=== PATIENT | female | born 1995 | race Caucasian/White ===

== ENCOUNTER 2019-08-25 18:34 | Emergency (ER) | payer OTHER, BC, SELFPAY ==
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
[2019-08-25 18:46] VITALS: BP 144/95; PULSE 76; RESP 18; TEMP 37.1; O2SAT 100
[2019-08-25 18:56] VITALS: O2SAT 99
[2019-08-25] MEDS: SODIUM CHLORIDE 0.9% IV 1,000 ML 999 ML IV CONT (19:28)
[2019-08-25] MEDS: ONDANSETRON INJ 4 MG/2 ML VIAL IV PUSH (19:28)
[2019-08-25 19:45] LABS: Estimated CRCL calculation 106 ml/min; Estimated Glomerular Filt Rate > 60
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
[2019-08-25 20:42] VITALS: BP 138/83; PULSE 73; RESP 16; O2SAT 100
== END 2019-08-25 20:42 | disposition home or self-care (01) ==
PROVIDERS: Emergency Provider Emergency Medicine
DX: S06.0X0A Concussion without loss of consciousness, initial encounter (principal); S80.12XD Contusion of left lower leg, subsequent encounter; S80.11XD Contusion of right lower leg, subsequent encounter; Q79.60 Ehlers-Danlos syndrome, unspecified; V49.40XA Driver injured in collision with unspecified motor vehicles in traffic accident, initial encounter; W18.2XXA Fall in (into) shower or empty bathtub, initial encounter; X58.XXXD Exposure to other specified factors, subsequent encounter
CPT/HCPCS: 36415; 70450; 74177; 81025; 96361; 96374; 99284; J2405; J7030; Q9967

== ENCOUNTER 2020-07-12 15:55 | Inpatient (IN) | payer BC, SELFPAY ==
[2020-07-12] VITALS (17 sets, daily range): BP systolic 97–119; BP diastolic 55–79; PULSE 63–113; RESP 16–24; TEMP 36.9–40.1; O2SAT 6–100; BMI 19.3
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
--- NOTE | ~2020-07-12 | XR_ITS ---
EXAMINATION: XR chest 1V portable EXAM DATE: 07/16/2020 03:44 INDICATION: Chest pain. TECHNIQUE: Portable AP frontal chest x-ray was obtained. Correlation is made to pulmonary CT earlier same date and abdomen pelvis CT 07/12/2020. FINDINGS: Compared to 4 days ago, development of moderate amount of bibasilar airspace disease, most likely pneumonia. CT demonstrated small to moderate-sized pleural effusions, which are subpulmonic on this x-ray and difficult to quantify. Upper lung zones are clear. Cardiomediastinal silhouette is no rmal. There is no pneumothorax suspected. There are no osseous abnormalities identified. IMPRESSION: 1. Multifocal moderate amount of bibasilar pneumonia. 2. Subpulmonic pleural effusions. Reviewed, dictated and finalized at location A. 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
--- NOTE | ~2020-07-12 | CT_ITS ---
EXAMINATION: CTA chest PE protocol DATE: 07/16/2020 05:35 INDICATION: Chest pain. Elevated d-dimer. TECHNIQUE: Computed tomography (CT) pulmonary angiogram of the chest was performed with 100 mL Omnipa que-350 intravenous contrast. Additional 3D reconstructions utilizing coronal maximum intensity proje ction (MIP) were performed. Automated exposure control and iterative reconstruction technique were em ployed. The dose-length product was 229.76 mGy-cm. COMPARISON: None FINDINGS: Excellent contrast opacification of the pulmonary arteries. There is mild streak artifact from dense contrast in the superior vena cava and right atrium. Mild scattered respiratory motion artifact which does not significantly limit evaluation. No pulmonary embolism. Small left and gnkqe-mc-zvxlboeh rig ht posteriorly layering pleural effusion. Groundglass opacities and some septal line thickening in th e dependent aspect of the bilateral upper and lower lobes with more dense patchy consolidation in the dependent lower lobes. Heart size is normal. No pericardial effusion. Thoracic aorta is normal in ca liber with no dissection. Couple mildly enlarged right hilar lymph nodes which are likely reactive. V isualized upper abdomen is normal. Mild thoracic spondylosis with chronic minimal anterior wedging at T10. IMPRESSION: 1. No pulmonary embolism. 2. Small left and ethzh-nq-sgxmxcde right pleural effusions. 3. Bilateral groundglass opacities and patchy consolidation in the dependent lungs which could repres ent pneumonia, aspiration, pulmonary edema or some combination thereof. 4. Mild likely reactive right hilar lymphadenopathy. Reviewed, dictated and finalized at location B. 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 No pulmonary embolism. 2. Small left and ksvwz-ol-seerewib right pleural effusions. 3. Bilateral groundglass opacities and patchy consolidation in the dependent sydnie ngs which could represent pneumonia, aspiration, pulmonary edema or some combin ation thereof. 4. Mild likely reactive right hilar lymphadenopathy.
--- NOTE | 2020-07-12 16:22 | PC.NURSE ---
PT UNABLE TO PROVIDE U/A AT THIS TIME. FLUIDS INFUSING - INSTRUCTED TO NOTIFY RN IF ABLE TO GO TO RESTROOM.
[2020-07-12 16:23] LABS: Hematocrit 36.1 % (37.0-47.0); Hemoglobin 12.2 g/dL (12.0-15.0); Mean Corpuscular HGB Conc 33.8 g/dl (32-36); Mean Corpuscular Hemoglobin 32.6 pg (26-34); Mean Corpuscular Volume 96.5 fl (80-100); Mean Platelet Volume 10.6 fl (7.4-10.4); Platelet Count Result 195 k/mm3 (150-375); Red Blood Count 3.74 M/mm3 (4.2-5.4); White Blood Count 18.9 K/mm3 (4.5-10.0)
[2020-07-12] MEDS: SODIUM CHLORIDE 0.9% IV 1,000 ML 999 ML IV CONT (16:29)
[2020-07-12] MEDS: ONDANSETRON INJ 4 MG/2 ML VIAL IV PUSH ×2 (16:29→21:20)
[2020-07-12] MEDS: FAMOTIDINE 20 MG/2 ML VIAL IV PUSH (16:29)
--- NOTE | 2020-07-12 16:34 | ED.ABDPAIN ---
HPI - Abdominal Pain General Chief Complaint: Abdominal Pain Stated Complaint: right flank pain, dysuria Time Seen by Provider: 07/12/20 16:00 Source: patient Mode of arrival: ambulatory Limitations: no limitations History of Present Illness HPI narrative: Patient is a 25-year-old female who presents with left flank pain noting sharp stabbing pain that began Monday with some burning with urination patient presents with fever chills sweats nausea. Patient denies vaginal bleeding discharge patient notes history of urinary tract infection with. . Patient is not taken anything for symptoms Related Data Allergies Allergy/AdvReac Type Severity Reaction Status Date / Time No Known Allergies Allergy Unknown Verified 07/12/20 16:20 Review of Systems Review of Systems: All systems reviewed & are unremarkable except as noted in HPI and below PMFSH Past Medical History Medical History Sanket-Danlos disease Family History Family History (Updated 08/01/11 @ 16:10 by DOCTOR UNKNOWN) Grandparent Diabetes mellitus Social History Social History Smoking status: Never smoker Second hand tobacco smoke exposure: No Alcohol intake: never Gender identity (if verbalized by the patient): Female Exam Narrative: Exam Narrative: GENERAL: Ill-appearing, well-nourished, and in no acute distress. HEAD: Normocephalic, atraumatic. EYES: PERRLA and EOMI. ENT: Nares clear, no rhinorrhea or epistaxis. Mucous membranes moist. CHEST: Clear to auscultation. No respiratory distress. No wheezes rales or rhonchi HEART: Regular rate and rhythm. No murmur heard. Normal peripheral pulses. ABDOMEN: Soft, left-sided abdominal tenderness, nondistended EXTREMITIES: Normal range of motion. No edema. SKIN: Warm, dry, no rash. NEURO: No focal deficits. Alert and oriented x3. Cranial nerves II through XII grossly intact PSYCH: Normal mood and affect. Course Course Emergency Course: Patient evaluated for fever flank pain found to have pyelonephritis was given fluids IV antibiotics with improvement will be kept in hospital overnight Vital Signs Vital signs: Vital Signs Temperature 104.1 F H 07/12/20 15:56 Pulse Rate 63 07/12/20 15:56 Respiratory Rate 17 07/12/20 15:56 Blood Pressure 109/79 07/12/20 15:56 Pulse Oximetry 95 07/12/20 15:56 Temperature 100 F H 07/12/20 17:00 Pulse Rate 80 07/12/20 18:45 Respiratory Rate 16 07/12/20 18:45 Blood Pressure 97/64 L 07/12/20 18:45 Pulse Oximetry 99 07/12/20 18:45 MDM - Abdominal Pain MDM Narrative Medical decision making narrative: Patient with pyelonephritis is unlikely etiology of her symptoms fluids antibiotics were given patient in the room in no distress aware of case findings treatment plan diagnosis will be kept in hospital for continued hydration and IV therapy Lab Data Result diagrams: 07/12/20 16:15 07/12/20 16:15 Labs: Lab Results 07/12/20 07/12/20 07/12/20 Range/Units 16:15 16:15 16:15 WBC 18.9 H (4.5-10.0) K/mm3 RBC 3.74 L (4.2-5.4) M/mm3 Hgb 12.2 (12.0-15.0) g/dL Hct 36.1 L (37.0-47.0) % MCV 96.5 (80-100) fl MCH 32.6 (26-34) pg MCHC 33.8 (32-36) g/dl RDW 12.0 (11.5-14.5) % Plt Count 195 (150-375) k/mm3 MPV 10.6 H (7.4-10.4) fl Immature Gran % (Auto) Not Reportable Neut % (Auto) Not Reportable Lymph % (Auto) Not Reportable [place] % (Auto) Not Reportable Eos % (Auto) Not Reportable Baso % (Auto) Not Reportable Lymph # (Auto) Not Reportable [place] # (Auto) Not Reportable Eos # (Auto) Not Reportable Baso # (Auto) Not Reportable Abs Immat Gran (auto) Not Reportable Absolute Neuts (auto) Not Reportable Absolute Nucleated RBC Not Reportable Total Counted 100 Neutrophils % (Manual) 77 H
[2020-07-12 16:40] LABS: Band Neutrophils Percent 6 % (0-6); Lymphocytes Absolute Manual 1.51 K/mm3 (1.1-4.5); Monocytes Percent Manual 9 % (3-9); Neutrophils Absolute Manual 15.68 K/mm3 (1.7-7.2); Neutrophils Percent Manual 77 % (46-73); Platelet Estimate Adequate (Adequate); Total Cells Counted 100
[2020-07-12 16:48] LABS: Alanine Aminotransferase 15 U/L (4-35); Albumin Level 4.1 g/dL (3.5-5.1); Alkaline Phosphatase 72 U/L (38-126); Anion Gap 12 mmol/L (8-16); Aspartate Amino Transferase 26 U/L (14-36); Bilirubin,Total 0.5 mg/dL (0.2-1.3); Blood Urea Nitrogen 10 mg/dL (7-17); Calcium 9.1 mg/dL (8.4-10.2); Carbon Dioxide 23 mmol/L (22-30); Chloride 97 mmol/L (98-107); Estimated CRCL calculation 74 ml/min; Estimated Glomerular Filt Rate > 60; Glucose 177 mg/dL (65-105); Lactic Acid Reflex 2.1 mmol/L (0.7-2.1); Lipase 46 U/L (23-300); Potassium 3.8 mmol/L (3.4-5.0); Sodium 132 mmol/L (137-145)
[2020-07-12 17:21] LABS: Add Urine Microscopic? YES; Appearance Urine Cloudy (Clear); Bacteria Urine 2+ /hpf; Bilirubin Urine Negative (Negative); Blood Urine 1+ (Negative); Color Urine Yellow (Yellow); Glucose Urine UA Negative (Negative); Ketones Urine 2+ mg/dL (Negative); Leukocyte Esterase Ur 2+ LEU/UL (Negative); Mucus Urine Rare /lpf; Nitrate Urine Positive (Negative); Protein Urine 3+ mg/dL (Negative); RBC Urine 21-50 /hpf (0-2); Squamous Epithelial Cell Urine Many /hpf (Few); Urobilinogen Urine Negative mg/dL (<2.0); WBC Urine >75 /hpf
[2020-07-12] MEDS: LACTATED RINGERS 1,000 ML 999 ML IV CONT (18:08)
[2020-07-12 19:20] LABS: Reflex Lactic Acid Yes or No Add Lactic
[2020-07-12 19:43] LABS: Lactic Acid 1.3 mmol/L (0.7-2.1)
[2020-07-12] MEDS: IBUPROFEN IV 800 MG/200 ML 800 MG/200 ML BAG 400 MG IVPB (21:20)
--- NOTE | 2020-07-12 21:40 | PM.IMHP ---
H&P: HPI History of Present Illness Date/Time: 07/12/20 20:30 Chief Complaint: Left flank pain and fever Narrative: Romana Pinzon is a 25 year old female with a past medical history of kidney stones and prior urinary tract infections who presented to the ER with left flank pain, subjective fevers and chills for 2 days. The patient had not been feeling well for the last 7 days. She has been more fatigued. Two days ago she developed fevers, dysuria and left flank pain. Her symptoms were similar to when she had a prior kidney stone and associated UTI. Her fever when she arrived to the ER was 104.1. She was having rigors and chills at home. She denies any headache, cough, recent ill contacts, COVID exposures, or abdominal pain. She did have some intermittent nausea associated with her flank pain. She did have a few episodes of clear emesis. She denies any diarrhea or changes in bowel habits. She reports her pain was a 10/10 in severity at its worst it is currently down to a 7/10 in intensity. The pain was pressure-like in nature and constant. She did try some Tylenol home with only minimal relief in her pain. The Tylenol did seem to help her chills. She denies having any hematuria. Her last urinary tract infection was at least 7 years ago. When the patient arrived to the ER her blood pressures were normal. Her blood pressures did drop while in the ER and I went down to the ER to evaluate her at that time. Repeat blood pressures had normalized. Patient was having rigors so vigorous that the bed was rattling when I entered the room. Review of Systems Review of Systems: Narrative: 12 systems were reviewed with pertinent positives and negatives per HPI. Except as documented in the HPI, all other systems were reviewed and are negative. [facility] Past Medical History Medical History (Updated 07/12/20 @ 21:44 by Madhavi Davis DO) Sanket-Danlos disease Kidney stones Surgical History Surgical History (Updated 07/12/20 @ 21:44 by Madhavi Davis DO) S/P laparoscopic procedure Endometriosis 2017 Uterine polyp Status post polypectomy 2017 Family History Family History (Updated 07/12/20 @ 22:40 by Madhavi Davis DO) Grandparent Diabetes mellitus Mother Healthy female adult Father Healthy adult male Social History Social History (Updated 07/12/20 @ 22:41 by Madhavi Davis DO) Smoking status: Never smoker Second hand tobacco smoke exposure: No Alcohol intake: current Drinks per week: 12 Alcohol use details: She drinks 2 or 3 times a week. She will drink 3-5 drinks on these occasions. Substance use type: marijuana Other substance usage details: She smokes marijuana daily. Additional living arrangements comments: She lives with her boyfriend. Gender identity (if verbalized by the patient): Female Spiritual care concerns: No Meds Home Medications and Allergies Home Medications Medication Instructions Recorded Confirmed Type naproxen 500 mg PO BID PRN #20 tablet 08/25/19 Rx ondansetron HCl [Zofran] 4 mg PO Q6H PRN #14 tablet 08/25/19 Rx Allergies Allergy/AdvReac Type Severity Reaction Status Date / Time No Known Allergies Allergy Unknown Verified 07/12/20 16:20 Vital Signs Vital Signs - 24 hr 07/12/20 15:56 07/12/20 16:30 07/12/20 17:00 Temperature 104.1 F H 100 F H Pulse Rate 63 112 H Respiratory Rate 17 18 Blood Pressure 109/79 119/78 Pulse Oximetry 95 97 07/12/20 18:00 07/12/20 18:45 07/12/20 19:00 Temperature Pulse Rate 90 80 82 Respiratory Rate 16 16 22 H Blood Pressure 104/69 97/64 L Pulse Oximetry 100 99 100 07/12/20 19:01 07/12/20 19:15 07/12/20 19:16 Temperature Pulse Rate 83 83 82 Respiratory Rate 20 16 19 Blood Pressure 108/70 106/67 Pulse Oximetry 100 100 100 07/12/20 19:32 07/12/20 19:45 07/12/20 20:00 Temperature Pulse Rate 89 85 85 Respiratory Rate 18 24 H 20 Blood Pressure Pulse Oximetry 100
[2020-07-12] MEDS: LACTATED RINGERS 1,000 ML 125 ML IV CONT (22:26)
[2020-07-13] VITALS (11 sets, daily range): BP systolic 100–120; BP diastolic 53–70; PULSE 78–103; RESP 16–18; TEMP 36.2–38; O2SAT 95–100; BMI 19.3
--- NOTE | 2020-07-13 03:10 | ADMGEN ---
This patient, Romana Pinzon, was admitted to 3 [facility] Surg Room 320-01. Patient/family oriented to hospital policies and general routines including ID bracelet, bed and alarms, visiting hours, pain management, procedures, bathroom and other care routines, personal items, smoking policy, room service/diet, and visiting hours. Information on how to activate the Rapid Response Team has been discussed. Patient/Family are encouraged to report perceived risks to care and to ask questions if they do not understand what they are told or what they should do. Patient arrived on the unit at 2150. She said she had some R flank pain and her temperature was 103. callisthenics instructor PA notified of the result and ice bags were placed behind her neck and under her arms. Her medications and health history were reviewed. She denied use of any prescription meds.
[2020-07-13] MEDS: MORPHINE SULFATE (*CRX) 2 MG/ML INJ IV PUSH ×2 (04:34→21:54)
[2020-07-13] MEDS: LACTATED RINGERS 1,000 ML 125 ML IV CONT ×2 (06:15→14:33)
[2020-07-13 06:17] LABS: Hematocrit 32.2 % (37.0-47.0); Hemoglobin 10.7 g/dL (12.0-15.0); Immature Platelet Fraction Pct 6.5 % (0.9-11.2); Mean Corpuscular HGB Conc 33.2 g/dl (32-36); Mean Corpuscular Hemoglobin 32.5 pg (26-34); Mean Corpuscular Volume 97.9 fl (80-100); Mean Platelet Volume 10.8 fl (7.4-10.4); Platelet Count Result 150 k/mm3 (150-375); Red Blood Count 3.29 M/mm3 (4.2-5.4); Red Cell Distribution Width 12.2 % (11.5-14.5); White Blood Count 14.9 K/mm3 (4.5-10.0)
[2020-07-13 06:26] LABS: Anion Gap 6 mmol/L (8-16); Blood Urea Nitrogen 9 mg/dL (7-17); Calcium 8.4 mg/dL (8.4-10.2); Carbon Dioxide 25 mmol/L (22-30); Chloride 101 mmol/L (98-107); Estimated CRCL calculation 83 ml/min; Estimated Glomerular Filt Rate > 60; Glucose 121 mg/dL (65-105); Sodium 132 mmol/L (137-145)
[2020-07-13 06:45] LABS: Band Neutrophils Percent 9 % (0-6); Basophils Absolute Manual 0.14 K/mm3 (0.0-0.1); Basophils Percent Manual 1 % (0-1); Lymphocytes Absolute Manual 0.29 K/mm3 (1.1-4.5); Monocytes Absolute Manual 0.59 K/mm3 (0.1-0.90); Monocytes Percent Manual 4 % (3-9); Neutrophils Absolute Manual 13.85 K/mm3 (1.7-7.2); Neutrophils Percent Manual 84 % (46-73); Platelet Estimate Adequate (Adequate); Total Cells Counted 100
[2020-07-13] MEDS: FAMOTIDINE 20 MG/2 ML VIAL IV PUSH ×2 (09:19→20:07)
--- NOTE | 2020-07-13 15:26 | PM.IMPN ---
Progress Note: A&P Assessment and Plan (1) Pyelonephritis: Code(s): N12 - Tubulo-interstitial nephritis, not specified as acute or chronic Status: Acute Assessment and Plan: 07/13/20 15:26 Patient is a 25-year-old female with a history of nephrolithiasis and recurrent UTI presented emergency department with a complaint of left-sided flank and abdominal pain fever nausea dysuria and frequency for 7 days and was getting progressively worse patient presented emergency depat her urine is positive for nitrite, leuko Estrace, leuko urea and CT scan of abdomen suggestive of pyelonephritis and upon arrival patient had a fever of 104, patient also met criteria for sepsis with leukocytosis, fever, source of infection, high normal lactic acid patient is started on Rocephin and will follow-up on urine culture and sensitivity and further recommendation to follow, today patient states feeling much better, does complaint of pain in left flank as well as cough and headache. (2) Sepsis: Qualifiers: Sepsis type: sepsis due to unspecified organism Sepsis acute organ dysfunction status: without acute organ dysfunction Qualified Code(s): A41.9 - Sepsis, unspecified organism Code(s): A41.9 - Sepsis, unspecified organism Status: Acute Assessment and Plan: Plan is above Additional Plan Sepsis due to left-sided pyelonephritis. Patient has been placed on empiric antibiotic therapy with Rocephin. She received 30 mL per kill bolus of isotonic fluids. Her blood pressures have improved with fluid resuscitation. Will continue Tylenol as needed for fever and moderate pain. Will add morphine as needed for severe pain. Zofran as needed for nausea. Urine cultures and blood cultures are pending. Will repeat CBC and BMP in a.m.. Subjective Date/time seen: 07/13/20 15:26 Patient is a 25-year-old female with a history of nephrolithiasis and recurrent UTI presented emergency department with a complaint of left-sided flank and abdominal pain fever nausea dysuria and frequency for 7 days and was getting progressively worse patient presented emergency depat her urine is positive for nitrite, leuko Estrace, leuko urea and CT scan of abdomen suggestive of pyelonephritis and upon arrival patient had a fever of 104, patient also met criteria for sepsis with leukocytosis, fever, source of infection, high normal lactic acid patient is started on Rocephin and will follow-up on urine culture and sensitivity and further recommendation to follow, today patient states feeling much better, does complaint of pain in left flank as well as cough and headache. Review of Systems Review of Systems: All systems reviewed & are unremarkable except as noted in HPI and below Exam Narrative: Exam Narrative: Nurse Susan is present in the room Patient is comfortable, NAD HEENT: eyes are clear and none icteric LUNGS:CTA HEART: RR S1S2 ABD: left CVA tenderness Lower extremities: no edema SKIN: nonjaundiced Neuro: grossly intact. Objective Data Vital Signs Vital Signs: Vital Signs - 24 hr 07/12/20 15:56 07/12/20 16:30 07/12/20 17:00 Temperature 104.1 F H 100 F H Pulse Rate 63 112 H Respiratory Rate 17 18 Blood Pressure 109/79 119/78 Pulse Oximetry 95 97 07/12/20 18:00 07/12/20 18:45 07/12/20 19:00 Temperature Pulse Rate 90 80 82 Respiratory Rate 16 16 22 H Blood Pressure 104/69 97/64 L Pulse Oximetry 100 99 100 07/12/20 19:01 07/12/20 19:15 07/12/20 19:16 Temperature Pulse Rate 83 83 82 Respiratory Rate 20 16 19 Blood Pressure 108/70 106/67 Pulse Oximetry 100 100 100 07/12/20 19:32 07/12/20 19:45 07/12/20 20:00 Temperature Pulse Rate 89 85 85 Respiratory Rate 18 24 H 20 Blood Pressure Pulse Oximetry 100 96 100 07/12/20 20:29 07/12/20 21:55 07/12/20 22:00 Temperature 103.1 F H 103.4 F H Pulse Rate 113 H Respiratory Rate 16 Blood Pressure 101/78 104/55 L Pulse Oximetry 98
[2020-07-13] MEDS: IBUPROFEN 600 MG TABLET PO (16:33)
[2020-07-13] MEDS: ONDANSETRON INJ 4 MG/2 ML VIAL IV PUSH (16:36)
[2020-07-13] MEDS: metroNIDAZOLE 500 MG/ISO 100ML 500 MG/100 ML BAG 100 MG IVPB (18:24)
[2020-07-14] VITALS: BP 110/69; PULSE 83; RESP 16; TEMP 37; O2SAT 99
[2020-07-14] MEDS: LACTATED RINGERS 1,000 ML 125 ML IV CONT ×3 (00:42→17:56)
[2020-07-14] MEDS: IBUPROFEN 600 MG TABLET PO ×2 (01:01→20:33)
[2020-07-14] MEDS: metroNIDAZOLE 500 MG/ISO 100ML 500 MG/100 ML BAG 100 MG IVPB ×4 (03:09→20:26)
[2020-07-14 04:00] VITALS: BP 99/52; PULSE 78; RESP 16; TEMP 36.2; O2SAT 99
[2020-07-14 06:08] LABS: Hematocrit 29.8 % (37.0-47.0); Hemoglobin 9.8 g/dL (12.0-15.0); Mean Corpuscular HGB Conc 32.9 g/dl (32-36); Mean Corpuscular Hemoglobin 32.3 pg (26-34); Mean Corpuscular Volume 98.3 fl (80-100); Platelet Count Result 146 k/mm3 (150-375); Red Blood Count 3.03 M/mm3 (4.2-5.4); Red Cell Distribution Width 12.5 % (11.5-14.5); White Blood Count 11.4 K/mm3 (4.5-10.0)
[2020-07-14 06:23] LABS: Anion Gap 2 mmol/L (8-16); Blood Urea Nitrogen 9 mg/dL (7-17); Calcium 8.2 mg/dL (8.4-10.2); Carbon Dioxide 30 mmol/L (22-30); Chloride 102 mmol/L (98-107); Estimated CRCL calculation 83 ml/min; Estimated Glomerular Filt Rate > 60; Glucose 92 mg/dL (65-105); Potassium 3.7 mmol/L (3.4-5.0); Sodium 134 mmol/L (137-145)
[2020-07-14 07:01] LABS: Band Neutrophils Percent 9 % (0-6); Lymphocytes Absolute Manual 0.11 K/mm3 (1.1-4.5); Monocytes Absolute Manual 0.91 K/mm3 (0.1-0.90); Monocytes Percent Manual 8 % (3-9); Neutrophils Absolute Manual 10.37 K/mm3 (1.7-7.2); Neutrophils Percent Manual 82 % (46-73); Total Cells Counted 100
[2020-07-14] MEDS: FAMOTIDINE 20 MG/2 ML VIAL IV PUSH ×2 (08:11→20:20)
--- NOTE | 2020-07-14 12:44 | PM.IMHP ---
H&P: HPI History of Present Illness Date/Time: 07/14/20 12:44 Chief Complaint: [facility] [employer] consultation Narrative: 25 y/o nulligravida with fever, flank pain, here with a diagnosis of pyelonephritis. Temp of 104 on admission, WBC 19K. Both have improved. She has pain which is under good control on analgesics. Receiving Rocephin. Urine clean catch and blood culture both positive for E coli. Last menstrual period 06/13/20. They are irregular, occurring every 1-2 months, not painful, with 4-5 days of bleeding typically. Sexually active with one partner for the last 4 months, using coitus interruptus for contraception. No vaginal discharge. Both she and her boyfriend had COVID-19, have recovered. She has a history of kidney stones in the past. No history of STI. Review of Systems Review of Systems: All systems reviewed & are unremarkable except as noted in HPI and below PMFSH Past Medical History Medical History Sanket-Danlos disease Kidney stones Surgical History Surgical History S/P laparoscopic procedure Endometriosis 2017 Uterine polyp Status post polypectomy 2017 Family History Family History Grandparent Diabetes mellitus Mother Healthy female adult Father Healthy adult male Social History Social History Smoking status: Never smoker Second hand tobacco smoke exposure: No Alcohol intake: current Drinks per week: 12 Alcohol use details: She drinks 2 or 3 times a week. She will drink 3-5 drinks on these occasions. Substance use type: marijuana Other substance usage details: She smokes marijuana daily. Additional living arrangements comments: She lives with her boyfriend. Gender identity (if verbalized by the patient): Female Spiritual care concerns: No Meds Home Medications and Allergies Home Medications Medication Instructions Recorded Confirmed Type naproxen 500 mg PO BID PRN #20 tablet 08/25/19 07/13/20 Rx ondansetron HCl [Zofran] 4 mg PO Q6H PRN #14 tablet 08/25/19 07/13/20 Rx Allergies Allergy/AdvReac Type Severity Reaction Status Date / Time No Known Allergies Allergy Unknown Verified 07/12/20 16:20 Vital Signs Vital Signs - 24 hr 07/13/20 14:11 07/13/20 16:00 07/13/20 16:33 Temperature 37.2 C 38.0 C H 38.0 C H Pulse Rate 95 Respiratory Rate 16 Blood Pressure 110/58 L Pulse Oximetry 100 07/13/20 18:24 07/13/20 20:00 07/14/20 00:00 Temperature 36.9 C 36.2 C L 37.0 C Pulse Rate 80 83 Respiratory Rate 18 16 Blood Pressure 101/53 L 110/69 Pulse Oximetry 97 99 07/14/20 04:00 Temperature 36.2 C L Pulse Rate 78 Respiratory Rate 16 Blood Pressure 99/52 L Pulse Oximetry 99 Exam Const: Orientation/consciousness: patient oriented x3 Other: Well-developed, well-nourished female in no acute distress. Neck: Thyroid: thyroid normal Lymphatic: no lymphadenopathy noted (in neck, axilla or inguinal nodes) Resp: Effort & Inspection: normal respiratory effort Auscultation: clear to auscultation bilaterally Cardio: Rate: regular rate Rhythm: regular rhythm Heart sounds: S1 normal heart sound present and S2 normal heart sound present GI: Other: ABD: Soft, nontender, nondistended. No guarding or rebound tenderness. No hepatosplenomegaly. : Other: External genitalia: normal female hair distribution, without lesion. Urethral meatus: no lesion, non prolapsed. Bladder: no mass, nontender Vagina: three tampons retained. These were removed with a ring forceps. Cervix: no cervical motion tenderness. A probe for GC/CT was collected. Uterus: small, anteverted, freely mobile, nontender Adnexa: no mass or tenderness. Anus/perineum: no lesions, nontender Skin: General skin exam: normal color and no rashes or lesions noted Ne
[2020-07-14 14:00] VITALS: BP 108/64; PULSE 76; RESP 16; TEMP 36.4; O2SAT 97
--- NOTE | 2020-07-14 15:09 | PM.IMPN ---
Progress Note: A&P Assessment and Plan (1) Pyelonephritis: Code(s): N12 - Tubulo-interstitial nephritis, not specified as acute or chronic Status: Acute Assessment and Plan: 07/14/20 15:09 Patient is a 25-year-old female with a history of nephrolithiasis and recurrent UTI presented emergency department with a complaint of left-sided flank and abdominal pain fever nausea dysuria and frequency for 7 days and was getting progressively worse patient presented emergency depat her urine is positive for nitrite, leuko Estrace, leuko urea and CT scan of abdomen suggestive of pyelonephritis and upon arrival patient had a fever of 104, patient also met criteria for sepsis with leukocytosis, fever, source of infection, high normal lactic acid patient is started on Rocephin and will follow-up on urine culture and sensitivity and further recommendation to follow, today patient states feeling much better, does complaint of pain in left flank as well as cough and headache. 07/14 today patient still complains of abdominal, states the headache and nausea are better, denies any fever or chills admitted with pyelonephritis was treated with Rocephin, yesterday patient had a persistent fever abdominal pain and concern vaginal discharge possibly PID switch antibiotics to Zosyn and Flagyl consulted gynecologis and was seen today and had a pelvic exam, during pelvic exam 3 old tampons were removed from her last period in May, suggesting patient may have toxic shock syndrome, machine stapler collected culture for GC/chylmida, urine culture and on bottle of blood culture is growing E coli, will follow-up sensitivity and further recommendation to follow. (2) Sepsis: Qualifiers: Sepsis type: sepsis due to unspecified organism Sepsis acute organ dysfunction status: without acute organ dysfunction Qualified Code(s): A41.9 - Sepsis, unspecified organism Code(s): A41.9 - Sepsis, unspecified organism Status: Acute Assessment and Plan: Plan is above Subjective Date/time seen: 07/14/20 15:09 Patient is a 25-year-old female with a history of nephrolithiasis and recurrent UTI presented emergency department with a complaint of left-sided flank and abdominal pain fever nausea dysuria and frequency for 7 days and was getting progressively worse patient presented emergency depat her urine is positive for nitrite, leuko Estrace, leuko urea and CT scan of abdomen suggestive of pyelonephritis and upon arrival patient had a fever of 104, patient also met criteria for sepsis with leukocytosis, fever, source of infection, high normal lactic acid patient is started on Rocephin and will follow-up on urine culture and sensitivity and further recommendation to follow, today patient states feeling much better, does complaint of pain in left flank as well as cough and headache. 07/14 today patient still complains of abdominal, states the headache and nausea are better, denies any fever or chills admitted with pyelonephritis was treated with Rocephin, yesterday patient had a persistent fever abdominal pain and concern vaginal discharge possibly PID switch antibiotics to Zosyn and Flagyl consulted gynecologis and was seen today and had a pelvic exam, during pelvic exam 3 old tampons were removed from her last period in May, suggesting patient may have toxic shock syndrome, machine stapler collected culture for GC/chylmida, urine culture and on bottle of blood culture is growing E coli, will follow-up sensitivity and further recommendation to follow. Review of Systems Review of Systems: All systems reviewed & are unremarkable except as noted in HPI and below Exam Narrative: Exam Narrative: Nurse Susan is present in the room Patient is comfortable, NAD HEENT: eyes are clear and none icteric LUNGS:CTA HEART: RR S1S2 ABD: left CVA tenderness Lower extremities: no edema SKIN: nonjaundiced Neuro: grossly intact. Objective Data Vital Signs
[2020-07-14] MEDS: MORPHINE SULFATE (*CRX) 2 MG/ML INJ IV PUSH ×2 (16:57→20:21)
[2020-07-14 20:00] VITALS: O2SAT 97
[2020-07-14 20:33] VITALS: TEMP 37.7
[2020-07-14 21:37] VITALS: BP 125/76; PULSE 96; RESP 16; TEMP 37.6; O2SAT 97
[2020-07-15 00:19] VITALS: TEMP 36.2
[2020-07-15] MEDS: MORPHINE SULFATE (*CRX) 2 MG/ML INJ IV PUSH ×6 (00:24→22:50)
[2020-07-15] MEDS: metroNIDAZOLE 500 MG/ISO 100ML 500 MG/100 ML BAG 100 MG IVPB ×2 (03:14→08:20)
[2020-07-15 06:00] VITALS: BP 110/76; PULSE 78; RESP 16; TEMP 36.1; O2SAT 98
[2020-07-15 06:20] LABS: Basophils Absolute Auto 0.1 K/mm3 (0.0-0.1); Basophils Percent Auto 0.7 % (0.2-1.2); Eosinophils Absolute Auto 0.1 K/mm3 (0-0.3); Eosinophils Percent Auto 1.2 % (0-4.4); Hematocrit 31.6 % (37.0-47.0); Hemoglobin 10.3 g/dL (12.0-15.0); Immature Granulocyte Absolute 0.08 K/mm3 (0.00-0.031); Immature Granulocyte Percent A 0.9 % (0-0.5); Lymphocytes Absolute Auto 0.96 K/mm3 (0.9-3.2); Lymphocytes Percent Auto 11.2 % (18.3-44.2); Mean Corpuscular HGB Conc 32.6 g/dl (32-36); Mean Corpuscular Hemoglobin 32.1 pg (26-34); Mean Corpuscular Volume 98.4 fl (80-100); Monocytes Absolute Auto 0.9 K/mm3 (0.1-0.6); Neutrophils Absolute Auto 6.4 K/mm3 (1.3-6.7); Platelet Count Result 188 k/mm3 (150-375); Red Blood Count 3.21 M/mm3 (4.2-5.4); Red Cell Distribution Width 12.8 % (11.5-14.5); White Blood Count 8.6 K/mm3 (4.5-10.0)
[2020-07-15 06:49] LABS: Anion Gap 2 mmol/L (8-16); Blood Urea Nitrogen 6 mg/dL (7-17); Calcium 8.1 mg/dL (8.4-10.2); Carbon Dioxide 30 mmol/L (22-30); Chloride 103 mmol/L (98-107); Estimated CRCL calculation 83 ml/min; Estimated Glomerular Filt Rate > 60; Glucose 108 mg/dL (65-105); Potassium 3.1 mmol/L (3.4-5.0); Sodium 135 mmol/L (137-145)
[2020-07-15] MEDS: LACTATED RINGERS 1,000 ML 125 ML IV CONT ×2 (07:36→16:40)
[2020-07-15] MEDS: FAMOTIDINE 20 MG/2 ML VIAL IV PUSH ×2 (08:17→21:41)
[2020-07-15] MEDS: ONDANSETRON INJ 4 MG/2 ML VIAL IV PUSH ×3 (09:46→22:47)
[2020-07-15] MEDS: POTASSIUM CHLORIDE 20 MEQ PACKET (FOR LIQUID) 40 MEQ PO (11:43)
[2020-07-15 14:00] VITALS: BP 126/87; PULSE 86; RESP 16; TEMP 36.6; O2SAT 97
--- NOTE | 2020-07-15 17:21 | PM.IMPN ---
Progress Note: A&P Assessment and Plan (1) Pyelonephritis: Code(s): N12 - Tubulo-interstitial nephritis, not specified as acute or chronic Status: Acute Assessment and Plan: 07/15/20 17:21 Patient is a 25-year-old female with a history of nephrolithiasis and recurrent UTI presented emergency department with a complaint of left-sided flank and abdominal pain fever nausea dysuria and frequency for 7 days and was getting progressively worse patient presented emergency depat her urine is positive for nitrite, leuko Estrace, leuko urea and CT scan of abdomen suggestive of pyelonephritis and upon arrival patient had a fever of 104, patient also met criteria for sepsis with leukocytosis, fever, source of infection, high normal lactic acid patient is started on Rocephin and will follow-up on urine culture and sensitivity and further recommendation to follow, today patient states feeling much better, does complaint of pain in left flank as well as cough and headache. 07/14 today patient still complains of abdominal, states the headache and nausea are better, denies any fever or chills admitted with pyelonephritis was treated with Rocephin, yesterday patient had a persistent fever abdominal pain and concern vaginal discharge possibly PID switch antibiotics to Zosyn and Flagyl consulted gynecologis and was seen today and had a pelvic exam, during pelvic exam 3 old tampons were removed from her last period in May, suggesting patient may have toxic shock syndrome, er manager collected culture for GC/chylmida, urine culture and on bottle of blood culture is growing E coli, will follow-up sensitivity and further recommendation to follow. 07/15 today patient states feeling much better, abdominal pain nausea and headache have improved, denies any fever or chills, patient blood and urine culture a growing E coli pansensitive will stop the flat, continue Zosyn, will follow-up culture for GC/chylmida, further recommendation to follow (2) Sepsis: Qualifiers: Sepsis type: sepsis due to unspecified organism Sepsis acute organ dysfunction status: without acute organ dysfunction Qualified Code(s): A41.9 - Sepsis, unspecified organism Code(s): A41.9 - Sepsis, unspecified organism Status: Acute Assessment and Plan: Plan is above Subjective Date/time seen: 07/15/20 17:21 Patient is a 25-year-old female with a history of nephrolithiasis and recurrent UTI presented emergency department with a complaint of left-sided flank and abdominal pain fever nausea dysuria and frequency for 7 days and was getting progressively worse patient presented emergency depat her urine is positive for nitrite, leuko Estrace, leuko urea and CT scan of abdomen suggestive of pyelonephritis and upon arrival patient had a fever of 104, patient also met criteria for sepsis with leukocytosis, fever, source of infection, high normal lactic acid patient is started on Rocephin and will follow-up on urine culture and sensitivity and further recommendation to follow, today patient states feeling much better, does complaint of pain in left flank as well as cough and headache. 07/14 today patient still complains of abdominal, states the headache and nausea are better, denies any fever or chills admitted with pyelonephritis was treated with Rocephin, yesterday patient had a persistent fever abdominal pain and concern vaginal discharge possibly PID switch antibiotics to Zosyn and Flagyl consulted gynecologis and was seen today and had a pelvic exam, during pelvic exam 3 old tampons were removed from her last period in May, suggesting patient may have toxic shock syndrome, er manager collected culture for GC/chylmida, urine culture and on bottle of blood culture is growing E coli, will follow-up sensitivity and further recommendation to follow. 07/15 today patient states feeling much better, abdominal pain nausea and headache have improved, denies any fever or c
[2020-07-15 20:00] VITALS: BP 121/79; PULSE 90; RESP 18; TEMP 37.4; O2SAT 91
[2020-07-16] VITALS (14 sets, daily range): BP systolic 110–144; BP diastolic 71–95; PULSE 57–106; RESP 14–20; TEMP 36.2–38.2; O2SAT 94–100
[2020-07-16] MEDS: LACTATED RINGERS 1,000 ML 125 ML IV CONT ×5 (01:44→22:55)
--- NOTE | 2020-07-16 03:27 | ECG_ITS ---
Measurements Intervals [place] Rate: 69 P: 24 MS: 140 QRS: 64 QRSD: 92 T: 35 QT: 353 QTc: 379 Interpretive Statements SINUS RHYTHM NORMAL ECG Electronically Signed On 07-16-2020 7:10:09 THERAPY ASSISTANT by Sami Jiménez D.O.
[2020-07-16 03:38] LABS: Glucose Point of Care 83 (65-105)
[2020-07-16] MEDS: MORPHINE SULFATE (*CRX) 2 MG/ML INJ IV PUSH ×3 (03:40→19:57)
[2020-07-16] MEDS: ONDANSETRON INJ 4 MG/2 ML VIAL IV PUSH ×2 (03:44→19:58)
[2020-07-16 03:51] LABS: Hematocrit 31.5 % (37.0-47.0); Hemoglobin 10.6 g/dL (12.0-15.0); Mean Corpuscular HGB Conc 33.7 g/dl (32-36); Mean Corpuscular Hemoglobin 32.6 pg (26-34); Mean Corpuscular Volume 96.9 fl (80-100); Mean Platelet Volume 10.1 fl (7.4-10.4); Platelet Count Result 222 k/mm3 (150-375); Red Blood Count 3.25 M/mm3 (4.2-5.4); Red Cell Distribution Width 12.9 % (11.5-14.5); White Blood Count 6.9 K/mm3 (4.5-10.0)
[2020-07-16 04:01] LABS: Prothrombin Time 13.5 Seconds (11.1-14.7)
[2020-07-16 04:02] LABS: Partial Thromboplastin Time 30.7 SECONDS (22.3-36.8)
[2020-07-16 04:07] LABS: Anion Gap 3 mmol/L (8-16); Blood Urea Nitrogen 3 mg/dL (7-17); Calcium 8.4 mg/dL (8.4-10.2); Carbon Dioxide 29 mmol/L (22-30); Chloride 102 mmol/L (98-107); Estimated CRCL calculation 83 ml/min; Estimated Glomerular Filt Rate > 60; Glucose 86 mg/dL (65-105); Potassium 3.7 mmol/L (3.4-5.0); Sodium 134 mmol/L (137-145)
[2020-07-16 04:15] LABS: Troponin I < 0.012 ng/mL (0.000-0.034)
[2020-07-16 04:18] LABS: D Dimer 3.91 ug/mL (<0.48)
--- NOTE | 2020-07-16 05:15 | PM.CCN ---
Critical Care Event Note Summary Code activated: No Narrative: rapid response was called and 03:20. Patient reports sudden onset Of severe 10/10 pleuritic chest pain. Associated with shortness of breath. nursing staff place patient on 2 L nasal cannula for comfort. She reports that felt as if for chest was being squeezed. she could not get a deep breath. Her pain was reproducible to palpation. EKG was performed which demonstrated normal sinus rhythm. EKG was personally reviewed. Stat chest x-ray was performed and upon my review did not demonstrate any large consolidation. Radiologic interpretation is pending. Stat labs were performed which demonstrated normal white count , BMP and troponin. However her D-dimer was elevated to 3.9. A stat CTA of the chest was ordered.The patient did spike a temperature of 100.8? following the rapid response and blood cultures were added. vitals temperature 97.4? pulse 106 respiratory rate 14 GENERAL: well-developed well-nourished, sitting up in bed at 45? HEENT: mucous membranes are moist, head is normocephalic atraumatic, no scleral icterus, nasal cannula in place CARDIOVASCULAR: sinus tachycardia, normal S1-S2, 2+ bilateral radial pedal pulses RESPIRATORY: mild tachypnea, tenderness palpation across anterior chest that was not reproducible whenever I did repeat exam with use of the stethoscope, crackles in the right lung in the right lower chest ABDOMEN: soft, nontender, nondistended, positive bowel sounds INTEGUMENT: warm to touch, non jaundice, no pallor NEUROLOGIC: alert and oriented, speech is clear, no facial asymmetry PSYCHIATRIC: anxious and tearful, cooperative EXTREMITIES: no clubbing, cyanosis or edema CT a preliminary read demonstrated bilateral pleural effusions right greater than left. Patchy airspace consolidation at the lung bases right greater than left consistent with multifocal infiltrate pneumonia. Laboratory Tests 07/16/20 03:38 07/16/20 03:38 07/16/20 07/16/20 07/16/20 03:22 03:38 03:38 WBC 6.9 RBC 3.25 L Hgb 10.6 L Hct 31.5 L MCV 96.9 MCH 32.6 MCHC 33.7 RDW 12.9 Plt Count 222 MPV 10.1 PT 13.5 INR 1.0 APTT 30.7 D-Dimer 3.91 H Sodium Potassium Chloride Carbon Dioxide Anion Gap BUN Creatinine Estim Creat Clear Calc Estimated GFR Glucose POC Capillary Glucose 83 Calcium Troponin I 07/16/20 03:38 WBC RBC Hgb Hct MCV MCH MCHC RDW Plt Count MPV PT INR APTT D-Dimer Sodium 134 L Potassium 3.7 Chloride 102 Carbon Dioxide 29 Anion Gap 3 L BUN 3 L Creatinine 0.80 Estim Creat Clear Calc 83 Estimated GFR > 60 Glucose 86 POC Capillary Glucose Calcium 8.4 Troponin I < 0.012 Microbiology 07/12/20 16:15 Blood Blood Culture - Preliminary Escherichia Coli Assessment and plan: 1. multifocal pneumonia: The patient is already on broad-spectrum antibiotics with Zosyn and Flagyl to treat her pyelonephritis, E coli bacteremia and possible toxic shock syndrome from retained tampons. If she had aspiration pneumonia Zosyn should provide adequate coverage. The patient did spike another fever. Given the current COVID crisis the patient was placed on droplet and contact isolation in be tested for COVID-19. Repeat blood cultures have been ordered. 40 minutes spent in critical care activities This case had a high probability of a clinically significant, sudden, or life threatening deterioration of this patient's condition which required my full and direct attention, intervention and personal management. Critical care time: 30 - 74 mins
[2020-07-16] MEDS: IBUPROFEN 600 MG TABLET PO ×2 (05:46→21:40)
[2020-07-16 08:12] LABS: Basophils Percent Auto 0.3 % (0.2-1.2); Eosinophils Absolute Auto 0.1 K/mm3 (0-0.3); Eosinophils Percent Auto 1.2 % (0-4.4); Hematocrit 32.9 % (37.0-47.0); Hemoglobin 10.6 g/dL (12.0-15.0); Immature Granulocyte Absolute 0.08 K/mm3 (0.00-0.031); Immature Granulocyte Percent A 1.2 % (0-0.5); Lymphocytes Absolute Auto 0.84 K/mm3 (0.9-3.2); Lymphocytes Percent Auto 12.2 % (18.3-44.2); Mean Corpuscular HGB Conc 32.2 g/dl (32-36); Mean Corpuscular Hemoglobin 31.2 pg (26-34); Mean Corpuscular Volume 96.8 fl (80-100); Mean Platelet Volume 10.3 fl (7.4-10.4); Monocytes Absolute Auto 0.9 K/mm3 (0.1-0.6); Monocytes Percent Auto 13.7 % (2.6-8.5); Neutrophils Absolute Auto 4.9 K/mm3 (1.3-6.7); Neutrophils Percent Auto 71.4 % (45.5-73.1); Platelet Count Result 243 k/mm3 (150-375); Red Cell Distribution Width 12.9 % (11.5-14.5); White Blood Count 6.9 K/mm3 (4.5-10.0)
[2020-07-16] MEDS: FAMOTIDINE 20 MG/2 ML VIAL IV PUSH ×2 (08:15→19:58)
[2020-07-16 08:25] LABS: Anion Gap 4 mmol/L (8-16); Blood Urea Nitrogen 3 mg/dL (7-17); Calcium 8.6 mg/dL (8.4-10.2); Carbon Dioxide 29 mmol/L (22-30); Chloride 100 mmol/L (98-107); Estimated CRCL calculation 83 ml/min; Estimated Glomerular Filt Rate > 60; Glucose 83 mg/dL (65-105); Potassium 3.5 mmol/L (3.4-5.0); Sodium 133 mmol/L (137-145)
[2020-07-16] MEDS: POTASSIUM CHLORIDE 20 MEQ PACKET (FOR LIQUID) 40 MEQ PO ×2 (12:20→12:40)
--- NOTE | 2020-07-16 15:16 | PM.IMPN ---
Progress Note: A&P Assessment and Plan (1) Pyelonephritis: Code(s): N12 - Tubulo-interstitial nephritis, not specified as acute or chronic Status: Acute Assessment and Plan: 07/16/20 15:16 Patient is a 25-year-old female with a history of nephrolithiasis and recurrent UTI presented emergency department with a complaint of left-sided flank and abdominal pain fever nausea dysuria and frequency for 7 days and was getting progressively worse patient presented emergency depat her urine is positive for nitrite, leuko Estrace, leuko urea and CT scan of abdomen suggestive of pyelonephritis and upon arrival patient had a fever of 104, patient also met criteria for sepsis with leukocytosis, fever, source of infection, high normal lactic acid patient is started on Rocephin and will follow-up on urine culture and sensitivity and further recommendation to follow, today patient states feeling much better, does complaint of pain in left flank as well as cough and headache. 07/14 today patient still complains of abdominal, states the headache and nausea are better, denies any fever or chills admitted with pyelonephritis was treated with Rocephin, yesterday patient had a persistent fever abdominal pain and concern vaginal discharge possibly PID switch antibiotics to Zosyn and Flagyl consulted gynecologis and was seen today and had a pelvic exam, during pelvic exam 3 old tampons were removed from her last period in May, suggesting patient may have toxic shock syndrome, [employer] collected culture for GC/chylmida, urine culture and on bottle of blood culture is growing E coli, will follow-up sensitivity and further recommendation to follow. 07/15 today patient states feeling much better, abdominal pain nausea and headache have improved, denies any fever or chills, patient blood and urine culture a growing E coli pansensitive will stop the flagyl, continue Zosyn, will follow-up culture for GC/chylmida, further recommendation to follow. 07/16 early this morning patient had severe pleuritic chest pain, patient had a complaint of fever and cough and shortness, CTA scan of the chest was negative for PE, showed multifocal infiltrate pneumonia, will continue zosyn, will add doxycycline, also suspected patient may have a COVID-19 being tested an isolated, results are pending, patient denies any abdominal pain nausea or vomiting, urine and blood cultures is growing E coli pansensitive will continue Zosyn, will follow-up culture for GC/chylmida, further recommendation to follow. Subjective Date/time seen: 07/16/20 15:16 Patient is a 25-year-old female with a history of nephrolithiasis and recurrent UTI presented emergency department with a complaint of left-sided flank and abdominal pain fever nausea dysuria and frequency for 7 days and was getting progressively worse patient presented emergency depat her urine is positive for nitrite, leuko Estrace, leuko urea and CT scan of abdomen suggestive of pyelonephritis and upon arrival patient had a fever of 104, patient also met criteria for sepsis with leukocytosis, fever, source of infection, high normal lactic acid patient is started on Rocephin and will follow-up on urine culture and sensitivity and further recommendation to follow, today patient states feeling much better, does complaint of pain in left flank as well as cough and headache. 07/14 today patient still complains of abdominal, states the headache and nausea are better, denies any fever or chills admitted with pyelonephritis was treated with Rocephin, yesterday patient had a persistent fever abdominal pain and concern vaginal discharge possibly PID switch antibiotics to Zosyn and Flagyl consulted gynecologis and was seen today and had a pelvic exam, during pelvic exam 3 old tampons were removed from her last period in May, suggesting patient may have toxic shock syndrome, [employer] collected culture for GC/chylmida, urine culture and on bottle of b
[2020-07-16 16:55] LABS: SARS-CoV-2 RNA PCR Negative
[2020-07-17 06:00] VITALS: BP 129/93; PULSE 76; RESP 20; TEMP 36.9; O2SAT 98
[2020-07-17 06:25] LABS: Hematocrit 31.1 % (37.0-47.0); Hemoglobin 10.2 g/dL (12.0-15.0); Mean Corpuscular HGB Conc 32.8 g/dl (32-36); Mean Corpuscular Hemoglobin 31.5 pg (26-34); Mean Platelet Volume 10.1 fl (7.4-10.4); Platelet Count Result 231 k/mm3 (150-375); Red Blood Count 3.24 M/mm3 (4.2-5.4); Red Cell Distribution Width 12.6 % (11.5-14.5); White Blood Count 4.9 K/mm3 (4.5-10.0)
[2020-07-17 06:46] LABS: Anion Gap 0 mmol/L (8-16); Blood Urea Nitrogen 3 mg/dL (7-17); Calcium 7.9 mg/dL (8.4-10.2); Carbon Dioxide 30 mmol/L (22-30); Chloride 105 mmol/L (98-107); Estimated CRCL calculation 94 ml/min; Estimated Glomerular Filt Rate > 60; Glucose 94 mg/dL (65-105); Potassium 3.7 mmol/L (3.4-5.0); Sodium 135 mmol/L (137-145)
[2020-07-17 07:19] LABS: Basophils Absolute Manual 0.14 K/mm3 (0.0-0.1); Basophils Percent Manual 3 % (0-1); Eosinophils Absolute Manual 0.29 K/mm3 (0.02-0.5); Eosinophils Percent Manual 6 % (0-4); Lymphocytes Absolute Manual 0.68 K/mm3 (1.1-4.5); Monocytes Absolute Manual 0.68 K/mm3 (0.1-0.90); Monocytes Percent Manual 14 % (3-9); Neutrophils Percent Manual 63 % (46-73); Platelet Estimate Adequate (Adequate); Total Cells Counted 100
[2020-07-17 07:20] LABS: Atypical Lymphocytes Present
[2020-07-17] MEDS: ONDANSETRON INJ 4 MG/2 ML VIAL IV PUSH ×3 (08:23→22:20)
[2020-07-17] MEDS: MORPHINE SULFATE (*CRX) 2 MG/ML INJ IV PUSH ×3 (08:23→22:20)
[2020-07-17] MEDS: FAMOTIDINE 20 MG/2 ML VIAL IV PUSH ×2 (08:24→21:19)
[2020-07-17] MEDS: LACTATED RINGERS 1,000 ML 125 ML IV CONT ×2 (08:26→18:15)
--- NOTE | 2020-07-17 10:22 | PCDIET ---
Nutrition Follow-Up Complete: Inadequate Oral Intake as related to pyelonephritis as evidenced by weight loss of 10-15 ibs in the past 3 months and poor po intake reported. Goal: Adequate Intake of at least 75% of meals/supplements Patient is meeting goal most days. No new goal at this time. Pt current nutrition is regular diet with ensure for breakfast and dinner providing an additional 220 calories and 9 grams of protein as well as a frozen nutritional treat providing an additional 300 calories and 9 grams of protein. Last recorded weight is 56 kg. Bowel Motility: + BM 07/16 Labs Reviewed: Hgb 10.2, Hct 31.1, Na 135, BUN 3 Meds Noted: pepsid, motrin, zofran, lactated ringers Additional Notes: Followed up with patient. Patient reports not having an appetite. She enjoys the ensure but wants to try a frozen nutritional treat at lunch time. Patient reported ordering meals but cannot get herself to eat much if any when it is brought up. RD will monitor every 5 days.
--- NOTE | 2020-07-17 10:39 | PCNSR ---
On 07/17/20, the student, Breana Junior, provided care and completed [facility] I have reviewed the student's documentation and agree with the findings.
--- NOTE | 2020-07-17 12:22 | PM.IMPN ---
Progress Note: A&P Assessment and Plan (1) Pyelonephritis: Code(s): N12 - Tubulo-interstitial nephritis, not specified as acute or chronic Status: Acute Assessment and Plan: Secondary to E coli regine on IV Zosyn. Additional Plan 2. Bilateral lung infiltrate rule out pneumonia give broad-spectrum IV antibiotics pending ID consult 3. Sepsis secondary to UTI treated with IV antibiotics 4. 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 Pleuritic chest pain pain control 6. Will get ID evaluation 7. Anticipate discharge in a.m. home independent Subjective Date/time seen: 07/17/20 12:22 Interval history: Patient seen and examined Patient was admitted to the hospital with fever was found to have UTI secondary to E coli treated with IV antibiotic also patient had a rapid response on 07/16/[address] scan was done to rule out PE PE was negative patient has bilateral infiltrate COVID-19 test was done was negative her bilateral infiltrates concerning for infection continue IV antibiotics ID was consulted also during hospitalizations gynecology was consulted and pelvic exam was done by pony rougher and 3 tampon was removed and it was from from the last period and May That the patient had Patient denies fever headache chest pain I am seeing the patient for fever Exam Narrative: Exam Narrative: Alert Chest no wheeze crackles Abdomen tender CVS S1 + S2 Lower extremity edema Objective Data Vital Signs Vital Signs: Vital Signs - 24 hr 07/16/20 17:00 07/16/20 20:00 07/16/20 21:40 Temperature 97.2 F L 100.2 F H 100.2 F H Pulse Rate 76 92 Respiratory Rate 18 20 Blood Pressure 124/71 128/86 Pulse Oximetry 99 95 07/16/20 22:00 07/16/20 22:40 07/17/20 06:00 Temperature 100.1 F H 98.7 F 98.5 F Pulse Rate 94 76 Respiratory Rate 18 20 Blood Pressure 120/76 129/93 H Pulse Oximetry 94 98 Intake/Output Intake/Output: Intake & Output 07/14/20 07/15/20 07/16/20 07/17/20 23:59 23:59 23:59 23:59 Intake Total 4290 3690 9140 300 Output Total 1900 3150 2900 1800 Balance 2390 540 6240 -1500 Meds/Results Medications: Active Medications Generic Name Dose Route Start Last Admin Trade Name Freq PRN Reason Stop Dose Admin Famotidine 20 mg 07/12/20 21:00 07/17/20 08:24 Famotidine 20 Mg/2 Ml Vial IV PUSH 20 mg Q12HR DEREK Administration Lactated Ringer's 1,000 mls @ 125 mls/hr 07/12/20 19:40 07/17/20 08:26 Lr - Lactated Ringers Iv IV CONT 125 mls/hr .Q8H DEREK Administration Piperacillin/Tazobactam/Dextrose 3.375 gm in 50 mls @ 100 mls/hr 07/14/20 10:00 07/17/20 10:31 Zosyn 3.375 Gm/D5w 50ml Pm IVPB 100 mls/hr Q6H DEREK Administration Ibuprofen 600 mg 07/13/20 16:21 07/16/20 21:40 Ibuprofen 600 Mg Tablet PO 600 mg Q8H PRN Administration Fever Morphine Sulfate 2 mg 07/12/20 22:35 07/17/20 08:23 Morphine Sulfate (*Crx) 2 Mg/Ml Inj IV PUSH 2 mg Q4H PRN Administration Pain Rated 7-10 Ondansetron HCl 4 mg 07/12/20 19:39 07/17/20 08:23 Ondansetron Inj 4 Mg/2 Ml Vial IV PUSH 4 mg Q4H PRN Administration Nausea Radiology Results: ITS Impressions Abdomen/Pelvis CT 07/12/20 18:45 IMPRESSION: Mild inflammation surrounding left ureter and kidney, differential diagnosis including upper urinary tract infection and recently passed stone. Please correlate with urinalysis. Punctate bilateral nephrolithiasis. Chest CTA 07/16/20 08:23 IMPRESSION: 1. No pulmonary embolism. 2. Small left and [id number] right pleural effusions. 3. Bilateral groundglass opacities and patchy consolidation in the dependent lungs which could represent pneumonia, aspiration, pulmonary edema or some combination thereof. 4. Mild likely reactive right hilar lymphadenopathy. Chest X-Ray 07/16/20 08:39 IMPRESSION: 1. Multifocal moderate amou
--- NOTE | 2020-07-17 13:56 | WPDINFPN2 ---
Progress Note: A&P Assessment and Plan (1) Pyelonephritis: Code(s): N12 - Tubulo-interstitial nephritis, not specified as acute or chronic Status: Acute Assessment and Plan: 1. E coli pyelonephritis and bacteremia 2. Chest pain and dyspnea due to fluid overload and the bacteremia, no primary pneumonia 3. Retained tampon REC Ampicillin #1 (antibiotic # 6), oral ampicillin x 5 days on 07/19 if stable/improved. Subjective Date/time seen: 07/17/20 13:56 Objective Data Vital Signs Vital Signs: Vital Signs - 24 hr 07/16/20 17:00 07/16/20 20:00 07/16/20 21:40 Temperature 36.2 C L 37.9 C H 37.9 C H Pulse Rate 76 92 Respiratory Rate 18 20 Blood Pressure 124/71 128/86 Pulse Oximetry 99 95 07/16/20 22:00 07/16/20 22:40 07/17/20 06:00 Temperature 37.8 C H 37.1 C 36.9 C Pulse Rate 94 76 Respiratory Rate 18 20 Blood Pressure 120/76 129/93 H Pulse Oximetry 94 98 Intake/Output Intake/Output: Intake & Output 07/14/20 07/15/20 07/16/20 07/17/20 23:59 23:59 23:59 23:59 Intake Total 4290 3690 9140 300 Output Total 1900 3150 2900 1800 Balance 2390 540 6240 -1500 Meds/Results Medications: Active Medications Generic Name Dose Route Start Last Admin Trade Name Freq PRN Reason Stop Dose Admin Famotidine 20 mg 07/12/20 21:00 07/17/20 08:24 Famotidine 20 Mg/2 Ml Vial IV PUSH 20 mg Q12HR DEREK Administration Lactated Ringer's 1,000 mls @ 125 mls/hr 07/12/20 19:40 07/17/20 08:26 Lr - Lactated Ringers Iv IV CONT 125 mls/hr .Q8H DEREK Administration Ampicillin Sodium 1 gm in 50 mls @ 100 mls/hr 07/17/20 13:55 Ampicillin 1 Gm/Ns 50 Ml IVPB Q4H DEREK Ibuprofen 600 mg 07/13/20 16:21 07/16/20 21:40 Ibuprofen 600 Mg Tablet PO 600 mg Q8H PRN Administration Fever Morphine Sulfate 2 mg 07/12/20 22:35 07/17/20 08:23 Morphine Sulfate (*Crx) 2 Mg/Ml Inj IV PUSH 2 mg Q4H PRN Administration Pain Rated 7-10 Ondansetron HCl 4 mg 07/12/20 19:39 07/17/20 08:23 Ondansetron Inj 4 Mg/2 Ml Vial IV PUSH 4 mg Q4H PRN Administration Nausea Radiology Results: ITS Impressions Abdomen/Pelvis CT 07/12/20 18:45 IMPRESSION: Mild inflammation surrounding left ureter and kidney, differential diagnosis including upper urinary tract infection and recently passed stone. Please correlate with urinalysis. Punctate bilateral nephrolithiasis. Chest CTA 07/16/20 08:23 IMPRESSION: 1. No pulmonary embolism. 2. Small left and oirhd-rr-[id number] right pleural effusions. 3. Bilateral groundglass opacities and patchy consolidation in the dependent lungs which could represent pneumonia, aspiration, pulmonary edema or some combination thereof. 4. Mild likely reactive right hilar lymphadenopathy. Chest X-Ray 07/16/20 08:39 IMPRESSION: 1. Multifocal moderate amount of bibasilar pneumonia. 2. Subpulmonic pleural effusions. Labs Labs: Laboratory Results - last 24 hr 07/14/20 07/16/20 07/17/20 13:35 06:57 06:01 WBC 4.9 RBC 3.24 L Hgb 10.2 L Hct 31.1 L MCV 96.0 MCH 31.5 MCHC 32.8 RDW 12.6 Plt Count 231 MPV 10.1 Immature Gran % (Auto) Not Reportable Neut % (Auto) Not Reportable Lymph % (Auto) Not Reportable [place] % (Auto) Not Reportable Eos % (Auto) Not Reportable Baso % (Auto) Not Reportable Lymph # (Auto) Not Reportable [place] # (Auto) Not Reportable Eos # (Auto) Not Reportable Baso # (Auto) Not Reportable Abs Immat Gran (auto) Not Reportable Absolute Neuts (auto) Not Reportable Absolute Nucleated RBC Not Reportable Total Counted 100 Neutrophils % (Manual) 63 Lymphocytes % (Manual) 14.0 L Monocytes % (Manual) 14 H Eosinophils % (Manual) 6 H Basophils % (Manual) 3 H Nucleated RBC % Not Reportable Abs Lymphs (Manual) 0.68 L Abs Monocytes (Manual) 0.68 Absolute Eos (Manual) 0.29 Abs Basophils (Manual) 0.14 H Atypica
[2020-07-17 14:00] VITALS: BP 128/81; PULSE 97; RESP 16; TEMP 36.6; O2SAT 97
[2020-07-17] MEDS: AMPICILLIN 1 GM/NS 50 ML 1 GM/50 ML BAG IVPB ×3 (14:30→21:19)
--- NOTE | 2020-07-17 14:55 | CONS_ITS ---
DATE OF CONSULTATION: 07/17/2020 REASON FOR CONSULTATION: Bacteremia. HISTORY OF PRESENT ILLNESS: A 25-year-old female, who in high school, had multiple episodes of nephrolithiasis, which passed spontaneously each time. She has never had previous urologic surgery and no other specific interventions were needed for the stones. She has had no intervening symptoms until 2 days before the present admission when she developed acute onset of left flank pain, very similar to her previous episodes. Also, fever sensation (had no thermometer at home), chills, nausea and vomiting, anorexia, generalized weakness, dysuria, and suprapubic pain. She presented to the emergency room on the and was admitted. She has been given piperacillin-tazobactam, metronidazole, and ceftriaxone at various times and presently is on piperacillin day #5. Hospital course has been complicated by retained tampon removed and early yesterday morning chest pain and dyspnea, which necessitated a rapid response. Her breathing is now back to normal. No dyspnea, no chest pain and no other events. Her pain is improved, though not resolved. Appetite is better. She was febrile on admission. Temperature curve as noted below. No other recent antibiotics past 6 weeks and no immunosuppressants. ALLERGIES: NONE KNOWN. HABITS: Occasional tobacco and alcohol and she smokes marijuana daily. PRESENT MEDICATIONS: No immunosuppressants. PAST MEDICAL HISTORY: She had a laparoscopic surgery 2 to 3 years ago for endometriosis with symptomatic improvement, and at the same time had a uterine polyp removed. Also has past Sanket-Danlos syndrome. REVIEW OF SYSTEMS: Irregular periods. 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 FAMILY HISTORY: Diabetes. SOCIAL HISTORY: She is single, lives locally. PHYSICAL EXAMINATION: GENERAL: Young female who appears her actual age, in no respiratory distress. VITAL SIGNS: Saturation on room air 98%. 129/93, 76, 20. Temperature on admission was 40.1, and the following day up to 38.0, and last 24 hours up to 37.9. Intake and output through calendar day yesterday indicates she was over 10 L ahead. SKIN: Warm and dry. No rashes. No erythroderma. NODES: She has no axillary or cervical adenopathy. EENT: The conjunctivae are clear. Pupils equal, round. The oropharynx, oral mucosa normal, well-hydrated, although the lips are slightly dry. NECK: No meningismus, mass, or tenderness. LUNGS: Clear to auscultation and percussion. No egophony, no fremitus change. CHEST: Equal expansion. Normal AP diameter. No indwelling vascular devices. CARDIAC: Regular rate and rhythm. No murmur, gallop, or rub. Pulses are 2+. ABDOMEN: Tender left upper and lower quadrants, also left flank and also marked left CVAT. She has mild right CVAT. Abdomen has no masses, distention nor tenderness elsewhere. No organomegaly. EXTREMITIES: Well perfused. No clubbing, cyanosis, edema. RADIOLOGY: I personally reviewed her chest x-ray, shows haziness in both lower lung duarte. CT of the chest was also performed yesterday and reviewed the radiologist's interpretation of pleural effusions, ground-glass opacities, hilar adenopathy. Abdomen pelvic CT on admission demonstrated left ureteral edema and punctate nephrolithiasis. Otherwise normal. Her CT of the lung bases on the same films was negative. LABORATORY DATA: Blood cultures from admission 1 out of 2 sets E coli, which is fully susceptible. Urine culture, same organism. Blood cultures repeated yesterday, no growth after short incubation. White count consistently normal. Hemoglobin 10.2, which is very stable and platelets are 231. Differential with mild lymphopenia. She has mild hyponatremia and low calcium 7.9, o
[2020-07-17 22:00] VITALS: BP 121/92; PULSE 61; RESP 18; TEMP 37.3; O2SAT 98
[2020-07-18] MEDS: AMPICILLIN 1 GM/NS 50 ML 1 GM/50 ML BAG IVPB ×6 (01:03→20:55)
[2020-07-18] MEDS: LACTATED RINGERS 1,000 ML 125 ML IV CONT ×3 (02:17→21:26)
[2020-07-18] MEDS: MORPHINE SULFATE (*CRX) 2 MG/ML INJ IV PUSH (03:21)
[2020-07-18] MEDS: ONDANSETRON INJ 4 MG/2 ML VIAL IV PUSH ×2 (03:21→23:15)
[2020-07-18 06:00] VITALS: BP 130/78; PULSE 53; RESP 18; TEMP 37.1; O2SAT 95
[2020-07-18 06:05] LABS: Basophils Percent Auto 0.3 % (0.2-1.2); Eosinophils Absolute Auto 0.2 K/mm3 (0-0.3); Eosinophils Percent Auto 3.6 % (0-4.4); Hematocrit 29.6 % (37.0-47.0); Hemoglobin 9.7 g/dL (12.0-15.0); Immature Granulocyte Absolute 0.06 K/mm3 (0.00-0.031); Lymphocytes Absolute Auto 1.33 K/mm3 (0.9-3.2); Lymphocytes Percent Auto 22.6 % (18.3-44.2); Mean Corpuscular HGB Conc 32.8 g/dl (32-36); Mean Corpuscular Hemoglobin 31.5 pg (26-34); Mean Corpuscular Volume 96.1 fl (80-100); Mean Platelet Volume 9.9 fl (7.4-10.4); Neutrophils Absolute Auto 3.3 K/mm3 (1.3-6.7); Neutrophils Percent Auto 55.5 % (45.5-73.1); Platelet Count Result 273 k/mm3 (150-375); Red Blood Count 3.08 M/mm3 (4.2-5.4); Red Cell Distribution Width 12.5 % (11.5-14.5); White Blood Count 5.9 K/mm3 (4.5-10.0)
[2020-07-18 06:26] LABS: Anion Gap 0 mmol/L (8-16); Blood Urea Nitrogen 4 mg/dL (7-17); Calcium 8.4 mg/dL (8.4-10.2); Carbon Dioxide 31 mmol/L (22-30); Chloride 103 mmol/L (98-107); Estimated CRCL calculation 108 ml/min; Estimated Glomerular Filt Rate > 60; Glucose 86 mg/dL (65-105); Potassium 3.7 mmol/L (3.4-5.0); Sodium 134 mmol/L (137-145)
[2020-07-18] MEDS: FAMOTIDINE 20 MG/2 ML VIAL IV PUSH ×2 (08:50→20:55)
--- NOTE | 2020-07-18 09:48 | PM.IMPN ---
Progress Note: A&P Assessment and Plan (1) Pyelonephritis: Code(s): N12 - Tubulo-interstitial nephritis, not specified as acute or chronic Status: Acute Assessment and Plan: Secondary to E coli currently on IV ampicillin per ID recommendation plan to continue IV ampicillin for 1 more day and switch to oral ampicillin in a.m. and discharged on oral ampicillin for 5 more days by a.m. Additional Plan 2. I do not think patient has pneumonia as per ID recommendation 3. Sepsis secondary to UTI treated with IV antibiotics 4. Retained tampon concern for toxic shock syndrome treated with antibiotic and removal of tampon Abdomen is more soft today tenderness has significantly improved 5. Pleuritic chest pain pain control 6. ID recommendation appreciated 7. Anticipate discharge in a.m. home independent Subjective Date/time seen: 07/18/20 09:48 Interval history: Patient seen and examined Patient was admitted to the hospital with fever was found to have UTI secondary to E coli treated with IV antibiotic also patient had a rapid response on 07/16/[address] scan was done to rule out PE PE was negative patient has bilateral infiltrate COVID-19 test was done was negative her bilateral infiltrates concerning for infection continue IV antibiotics ID was consulted also during hospitalizations gynecology was consulted and pelvic exam was done by radiologic technology program director and 3 tampon was removed and it was from from the last period and May That the patient had ID was consulted antibiotic was changed to ampicillin continue until a.m. plan to switch to oral ampicillin for 5 more days in a.m. and discharge in a.m. Patient denies fever headache chest pain I am seeing the patient for fever Exam Narrative: Exam Narrative: Alert Chest no wheeze crackles Abdomen tender CVS S1 + S2 Lower extremity edema Objective Data Vital Signs Vital Signs: Vital Signs - 24 hr 07/17/20 14:00 07/17/20 22:00 07/18/20 06:00 Temperature 97.9 F 99.1 F 98.7 F Pulse Rate 97 61 53 L Respiratory Rate 16 18 18 Blood Pressure 128/81 121/92 H 130/78 Pulse Oximetry 97 98 95 Intake/Output Intake/Output: Intake & Output 07/15/20 07/16/20 07/17/20 07/18/20 23:59 23:59 23:59 23:59 Intake Total 3690 9140 2960 2000 Output Total 3150 2900 5400 3000 Balance 540 6240 -2440 -1000 Meds/Results Medications: Active Medications Generic Name Dose Route Start Last Admin Trade Name Freq PRN Reason Stop Dose Admin Hydrocodone Bitart/Acetaminophen 1 tab 07/18/20 09:44 Hydrocodone/Acetaminophen (*Crx) 5-325 Mg Tablet PO Q6H PRN Pain Rated 4-6 Famotidine 20 mg 07/12/20 21:00 07/18/20 08:50 Famotidine 20 Mg/2 Ml Vial IV PUSH 20 mg Q12HR DEREK Administration Lactated Ringer's 1,000 mls @ 125 mls/hr 07/12/20 19:40 07/18/20 02:17 Lr - Lactated Ringers Iv IV CONT 125 mls/hr .Q8H DEREK Administration Ampicillin Sodium 1 gm in 50 mls @ 100 mls/hr 07/17/20 14:00 07/18/20 08:50 Ampicillin 1 Gm/Ns 50 Ml IVPB 100 mls/hr Q4HR DEREK Administration Ibuprofen 600 mg 07/13/20 16:21 07/16/20 21:40 Ibuprofen 600 Mg Tablet PO 600 mg Q8H PRN Administration Fever Ondansetron HCl 4 mg 07/12/20 19:39 07/18/20 03:21 Ondansetron Inj 4 Mg/2 Ml Vial IV PUSH 4 mg Q4H PRN Administration Nausea Radiology Results: ITS Impressions Abdomen/Pelvis CT 07/12/20 18:45 IMPRESSION: Mild inflammation surrounding left ureter and kidney, differential diagnosis including upper urinary tract infection and recently passed stone. Please correlate with urinalysis. Punctate bilateral nephrolithiasis. Chest CTA 07/16/20 08:23 IMPRESSION: 1. No pulmonary embolism. 2. Small left and ngyvl-is-zgnwqdhk right pleural effusions. 3. Bilateral groundglass opacities and patchy consolidation in the dependent lungs which could represent pneumonia, aspiration, pulmonary edema or some combination thereof. 4. Mil
[2020-07-18] MEDS: HYDROcodone/acetaminophen (*CRX) 5-325 MG TABLET 1 TAB PO ×3 (10:06→23:15)
[2020-07-18 14:00] VITALS: BP 111/66; PULSE 60; RESP 16; TEMP 36.6; O2SAT 99
[2020-07-18 20:00] VITALS: O2SAT 95
[2020-07-18 21:59] VITALS: BP 134/85; PULSE 51; RESP 18; TEMP 36.4; O2SAT 95
[2020-07-19] MEDS: AMPICILLIN 1 GM/NS 50 ML 1 GM/50 ML BAG IVPB ×4 (01:06→12:41)
[2020-07-19 06:00] VITALS: BP 130/81; PULSE 53; RESP 20; TEMP 36.7; O2SAT 99
[2020-07-19] MEDS: LACTATED RINGERS 1,000 ML 125 ML IV CONT (06:13)
[2020-07-19 06:43] LABS: Basophils Percent Auto 0.8 % (0.2-1.2); Eosinophils Absolute Auto 0.2 K/mm3 (0-0.3); Eosinophils Percent Auto 4.7 % (0-4.4); Hemoglobin 10.2 g/dL (12.0-15.0); Immature Granulocyte Absolute 0.12 K/mm3 (0.00-0.031); Immature Granulocyte Percent A 2.4 % (0-0.5); Lymphocytes Absolute Auto 1.41 K/mm3 (0.9-3.2); Lymphocytes Percent Auto 27.8 % (18.3-44.2); Mean Corpuscular HGB Conc 32.9 g/dl (32-36); Mean Corpuscular Hemoglobin 31.5 pg (26-34); Mean Corpuscular Volume 95.7 fl (80-100); Mean Platelet Volume 9.8 fl (7.4-10.4); Monocytes Absolute Auto 0.8 K/mm3 (0.1-0.6); Neutrophils Absolute Auto 2.5 K/mm3 (1.3-6.7); Neutrophils Percent Auto 49.3 % (45.5-73.1); Platelet Count Result 345 k/mm3 (150-375); Red Blood Count 3.24 M/mm3 (4.2-5.4); Red Cell Distribution Width 12.2 % (11.5-14.5); White Blood Count 5.1 K/mm3 (4.5-10.0)
[2020-07-19 07:20] LABS: Anion Gap 1 mmol/L (8-16); Blood Urea Nitrogen 4 mg/dL (7-17); Calcium 8.8 mg/dL (8.4-10.2); Carbon Dioxide 32 mmol/L (22-30); Chloride 102 mmol/L (98-107); Estimated CRCL calculation 94 ml/min; Estimated Glomerular Filt Rate > 60; Glucose 85 mg/dL (65-105); Potassium 3.7 mmol/L (3.4-5.0); Sodium 135 mmol/L (137-145)
[2020-07-19] MEDS: FAMOTIDINE 20 MG/2 ML VIAL IV PUSH (08:52)
--- NOTE | 2020-07-19 12:39 | PM.DS ---
DS: Admitting Diagnosis Admitting Diagnosis Admitting Diagnosis: Chief Complaint: Left flank pain and fever DS: Discharge Diagnosis Discharge Diagnosis (1) Pyelonephritis: Code(s): N12 - Tubulo-interstitial nephritis, not specified as acute or chronic Status: Acute Assessment and Plan: 07/16/20 15:16 Patient is a 25-year-old female with a history of nephrolithiasis and recurrent UTI presented emergency department with a complaint of left-sided flank and abdominal pain fever nausea dysuria and frequency for 7 days and was getting progressively worse patient presented emergency depat her urine is positive for nitrite, leuko Estrace, leuko urea and CT scan of abdomen suggestive of pyelonephritis and upon arrival patient had a fever of 104, patient also met criteria for sepsis with leukocytosis, fever, source of infection, high normal lactic acid patient is started on Rocephin and will follow-up on urine culture and sensitivity and further recommendation to follow, today patient states feeling much better, does complaint of pain in left flank as well as cough and headache. 07/14 today patient still complains of abdominal, states the headache and nausea are better, denies any fever or chills admitted with pyelonephritis was treated with Rocephin, yesterday patient had a persistent fever abdominal pain and concern vaginal discharge possibly PID switch antibiotics to Zosyn and Flagyl consulted gynecologis and was seen today and had a pelvic exam, during pelvic exam 3 old tampons were removed from her last period in May, suggesting patient may have toxic shock syndrome, commissary steward collected culture for GC/chylmida, urine culture and on bottle of blood culture is growing E coli, will follow-up sensitivity and further recommendation to follow. 07/15 today patient states feeling much better, abdominal pain nausea and headache have improved, denies any fever or chills, patient blood and urine culture a growing E coli pansensitive will stop the flagyl, continue Zosyn, will follow-up culture for GC/chylmida, further recommendation to follow. 07/16 early this morning patient had severe pleuritic chest pain, patient had a complaint of fever and cough and shortness, CTA scan of the chest was negative for PE, showed multifocal infiltrate pneumonia, will continue zosyn, will add doxycycline, also suspected patient may have a COVID-19 being tested an isolated, results are pending, patient denies any abdominal pain nausea or vomiting, urine and blood cultures is growing E coli pansensitive will continue Zosyn, will follow-up culture for GC/chylmida, further recommendation to follow. Patient seen by Dr. phelan and suspect most likely patient has pyelonephritis and improving on current regimen, 3 tampons were removed did not result in toxic shock, culture for GC/chylmida, negative, patient COVID test is negative, will discharge the patient on ampicillin as recommended by Dr. phelan. DS: Summary Hospital Course Reason for hospitalization: Chief Complaint: Left flank pain and fever Narrative: Romana Pinzon is a 25 year old female with a past medical history of kidney stones and prior urinary tract infections who presented to the ER with left flank pain, subjective fevers and chills for 2 days. The patient had not been feeling well for the last 7 days. She has been more fatigued. Two days ago she developed fevers, dysuria and left flank pain. Her symptoms were similar to when she had a prior kidney stone and associated UTI. Her fever when she arrived to the ER was 104.1. She was having rigors and chills at home. She denies any headache, cough, recent ill contacts, COVID exposures, or abdominal pain. She did have some intermittent nausea associated with her flank pain. She did have a few episodes of clear emesis. She denies any diarrhea or changes in bowel habits. She reports her pain was a 10/10 in severity at its worst it is currently down to a
== END 2020-07-19 13:40 | disposition home or self-care (01) | DRG 872 ==
LOC: ANHED 19:38 → ANH3MEDSUR 19:59
PROVIDERS: Emergency Medicine; Emergency Medicine Emergency Medical Services; Internal Medicine; Obstetrics & Gynecology; Admitting Provider Internal Medicine; Emergency Provider Emergency Medicine; Visit Provider Family Medicine
DX: A41.51 Sepsis due to Escherichia coli [E. coli] (principal); N12 Tubulo-interstitial nephritis, not specified as acute or chronic; Q79.60 Ehlers-Danlos syndrome, unspecified; J90 Pleural effusion, not elsewhere classified; T19.2XXA Foreign body in vulva and vagina, initial encounter; B96.20 Unspecified Escherichia coli [E. coli] as the cause of diseases classified elsewhere; Z20.822 Contact with and (suspected) exposure to COVID-19; Z86.16 Personal history of COVID-19; F12.90 Cannabis use, unspecified, uncomplicated
CPT/HCPCS: 36415; 71045; 71275; 74176; 80048; 80053; 81001; 81025; 83605; 83690; 84484; 85025; 85027; 85055; 85380; 85610; 85730; 87040; 87077; 87086; 87088; 87186; 87491; 87591; 93005; 96361; 96365; 96366; 96367; 96375; 96376; 99285; A9270; C9803; G0378; J0131; J0290; J0696; J1741; J2270; J2405; J2543; J7030; J7120; Q9967; U0003; U0005

== ENCOUNTER 2020-12-11 09:00 | Emergency (ER) | payer BC, SELFPAY ==
[2020-12-11] VITALS (17 sets, daily range): BP systolic 102–120; BP diastolic 61–77; PULSE 55–66; RESP 16–18; TEMP 36.6; O2SAT 91–100
--- NOTE | ~2020-12-11 | CT_ITS ---
EXAMINATION: CT abdomen pelvis w con DATE: 12/11/2020 10:40 INDICATION: Epigastric pain for 2 days. Nausea and vomiting. History of polypectomy of the uterus. En dometriosis. Sanket Danlos syndrome. TECHNIQUE: Computed tomography (CT) of the head was performed with 100 cc Omnipaque 350 intravenous c ontrast. The dose-length product was 201.32 mGy-cm. Automated exposure control and iterative reconstr uction technique were employed. COMPARISON: CT dated 07/12/2020 FINDINGS: Lung bases are unremarkable. Heart size normal. No significant pleural or pericardial effus ion. No significant vascular abnormality. No lymphadenopathy. The liver, spleen, pancreas, adrenal glands and kidneys are unremarkable. Gallbladder is present. Non obstructive bowel gas pattern. No evidence for hernia. No abnormal pelvic masses or fluid collections. Bladder is decompressed. No f ree air or free fluid. No significant bone or joint abnormality. IMPRESSION: 1. No acute abdominal abnormality. Reviewed, dictated and finalized at location B.
[2020-12-11 09:50] LABS: Basophils Percent Auto 0.4 % (0.2-1.2); Eosinophils Absolute Auto 0.1 K/mm3 (0-0.3); Eosinophils Percent Auto 2.1 % (0-4.4); Hemoglobin 11.2 g/dL (12.0-15.0); Immature Granulocyte Absolute 0.03 K/mm3 (0.00-0.031); Immature Granulocyte Percent A 0.6 % (0-0.5); Lymphocytes Absolute Auto 1.64 K/mm3 (0.9-3.2); Lymphocytes Percent Auto 31.7 % (18.3-44.2); Mean Corpuscular Volume 93.8 fl (80-100); Mean Platelet Volume 10.6 fl (7.4-10.4); Monocytes Absolute Auto 0.4 K/mm3 (0.1-0.6); Monocytes Percent Auto 7.3 % (2.6-8.5); Neutrophils Percent Auto 57.9 % (45.5-73.1); Platelet Count Result 225 k/mm3 (150-375); Red Blood Count 3.73 M/mm3 (4.2-5.4); Red Cell Distribution Width 12.1 % (11.5-14.5); White Blood Count 5.2 K/mm3 (4.5-10.0)
[2020-12-11 09:56] LABS: Add Urine Microscopic? YES; Appearance Urine Clear (Clear); Bacteria Urine Trace /hpf; Bilirubin Urine Negative (Negative); Blood Urine Negative (Negative); Color Urine Yellow (Yellow); Glucose Urine UA Negative (Negative); Ketones Urine Negative (Negative); Leukocyte Esterase Ur Trace LEU/UL (Negative); Mucus Urine Heavy /lpf; Nitrate Urine Negative (Negative); Protein Urine 2+ mg/dL (Negative); Squamous Epithelial Cell Urine Moderate /hpf (Few); Urobilinogen Urine Negative mg/dL (<2.0)
[2020-12-11 09:57] LABS: Alanine Aminotransferase 10 U/L (4-35); Albumin Level 4.7 g/dL (3.5-5.1); Alkaline Phosphatase 44 U/L (38-126); Anion Gap 9 mmol/L (8-16); Aspartate Amino Transferase 19 U/L (14-36); Bilirubin,Total 0.5 mg/dL (0.2-1.3); Blood Urea Nitrogen 13 mg/dL (7-17); Calcium 9.4 mg/dL (8.4-10.2); Carbon Dioxide 23 mmol/L (22-30); Chloride 108 mmol/L (98-107); Estimated CRCL calculation 92 ml/min; Estimated Glomerular Filt Rate > 60; Glucose 109 mg/dL (65-105); Lipase 129 U/L (23-300); Sodium 140 mmol/L (137-145)
[2020-12-11] MEDS: SODIUM CHLORIDE 0.9% IV 1,000 ML 999 ML IV CONT (10:19)
[2020-12-11 10:26] LABS: Specific Grav Ur 1.033 (1.001-1.035)
--- NOTE | 2020-12-11 11:05 | ED.ABDPAIN ---
HPI - Abdominal Pain General Chief Complaint: Abdominal Pain Stated Complaint: ABD pain, threw up blood yesterday Time Seen by Provider: 12/11/20 09:44 Source: patient and RN notes reviewed Mode of arrival: ambulatory Limitations: no limitations History of Present Illness HPI narrative: Patient is 25 years old white female presents with mid abdominal burning sensation started 2 days ago, worse when eating, better when she goes sleep. Patient denies any nausea, vomiting, diarrhea, constipation, fever, chills, stress. Patient started on contraceptive implant 3 weeks ago. Currently have a vaginal bleeding. Patient denies smoking, drinks occasionally and uses marijuana almost daily, history of uterine polyps Related Data Allergies Allergy/AdvReac Type Severity Reaction Status Date / Time No Known Allergies Allergy Unknown Verified 12/11/20 09:28 Review of Systems Review of Systems: Narrative: CONSTITUTIONAL: Denies fever, chills, or sweats. EYES: Denies visual changes, redness, or discharge. ENT: Denies rhinorrhea, congestion, sore throat, or otalgia. CARDIOVASCULAR: Denies chest pain, palpitations, or edema. RESPIRATORY: Denies cough or dyspnea. GASTROINTESTINAL: Denies abdominal pain, nausea, vomiting, or diarrhea. GENITOURINARY: Denies dysuria or hematuria. SKIN: Denies rash or itching. MUSCULOSKELETAL: Denies back pain, joint pain, or myalgia. NEUROLOGIC: Denies headache, numbness, or weakness. PSYCHIATRIC: Denies anxiety or depression. [facility] Past Medical History Medical History Sanket-Danlos disease Kidney stones Surgical History Surgical History S/P laparoscopic procedure Endometriosis 2017 Uterine polyp Status post polypectomy 2017 Family History Family History Grandparent Diabetes mellitus Mother Healthy female adult Father Healthy adult male Social History Social History Smoking status: Never smoker Second hand tobacco smoke exposure: No Alcohol intake: current Drinks per week: 12 Substance use type: marijuana Other substance usage details: She smokes marijuana daily. Additional living arrangements comments: She lives with her boyfriend. Gender identity (if verbalized by the patient): Female Spiritual care concerns: No Exam Narrative: Exam Narrative: General appearance: Well-developed, well-nourished, does not look in pain or distress, no family member at the bedside Skin: Normal color Head: Normocephalic, nontraumatic Eyes: Clear conjunctiva ENT: Oropharynx normal, ears normal, nose normal Neck: Supple, nontender Chest and respiratory: Airway patent, no respiratory distress, no accessory muscle use Heart: Regular rate/rhythm Abdomen: Soft, diffuse abdominal pain, mild guarding, no rebound, quiet bowel sounds Vascular: Normal peripheral pulses, normal capillary refill. Musculoskeletal: Normal range of motion, nontender back Neurologic: Alert and oriented ?3, CERTIFIED TOWER CLIMBER is normal as tested, no gross motor deficit Course Course Emergency Course: Stable Vital Signs Vital signs: Vital Signs Temperature 36.6 C 12/11/20 09:12 Pulse Rate 66 12/11/20 09:12 Respiratory Rate 18 12/11/20 09:12 Blood Pressure 120/77 12/11/20 09:12 Pulse Oximetry 99 12/11/20 09:12 Temperature 36.6 C 12/11/20 09:12 Pulse Rate 55 L 12/11/20 11:42 Respiratory Rate 16 12/11/20 10:17 Blood Pressure 111/73 12/11/20 10:17 Pulse Oximetry 99 12/11/20 11:30 MDM - Abdominal Pain MDM Narrativ
== END 2020-12-11 13:11 | disposition home or self-care (01) ==
PROVIDERS: Emergency Provider Emergency Medicine; PCP Emergency Medicine
DX: R10.84 Generalized abdominal pain (principal)
CPT/HCPCS: 36415; 74177; 80053; 81001; 81025; 83690; 85025; 87077; 87086; 87088; 96360; 99284; J7030; Q9967

== ENCOUNTER 2021-06-23 14:39 | Outpatient (CLI) | payer BC, SELFPAY | END 2021-06-23 14:40 | disposition home or self-care (01) | PROVIDERS: PCP Emergency Medicine; Visit Provider Family Medicine | DX: R07.0 Pain in throat (principal) | CPT/HCPCS: 87081; 87880 ==

== ENCOUNTER 2021-08-24 09:38 | Observation (INO) | payer OTHER, MEDICAID, SELFPAY ==
--- NOTE | ~2021-08-24 | US_ITS ---
EXAMINATION: US renal BI DATE: 08/24/2021 11:16 INDICATION: Diffuse abdominal pain TECHNIQUE: Multiple grayscale and Doppler ultrasound images of the kidneys were obtained. COMPARISON: None. FINDINGS: The right kidney measures 9.7 x 6.3 x 5.2 cm. The left kidney measures 10.9 x 5.4 x 5.2 cm. The kidneys demonstrate normal parenchymal echogenicity. There is no hydronephrosis. The bladder is normal. IMPRESSION: 1. Normal kidneys without hydronephrosis. Reviewed, dictated and finalized at location B. ERS MATERIAL HANDLERS
--- NOTE | ~2021-08-24 | US_ITS ---
EXAMINATION: US abdomen limited DATE: 08/24/2021 11:17 INDICATION: Right upper quadrant pain TECHNIQUE: Multiple grayscale and Doppler ultrasound images of the abdomen were obtained. COMPARISON: None available FINDINGS: Bowel gas obscures visualization of the pancreas. The visualized portions of the pancreas a re unremarkable. The liver is normal with normal echogenicity and echotexture. No surface nodularity. Normal hepatopetal flow in the main portal vein. The gallbladder is normal with no abnormal wall thi ckening, pericholecystic fluid or stones. The normal common bile duct measures 3 mm. There was no son ographic Jimenez sign. The appendix is not identified sonographically. IMPRESSION: 1. No sonographic correlate for the patient's symptoms. Appendix not identified sonographically. Reviewed, dictated and finalized at location B. NE SERVICE OPERATOR
--- NOTE | ~2021-08-24 | US_ITS ---
EXAMINATION: US OB limited EXAM DATE: 08/24/2021 11:17 INDICATION: Abdominal pain/check placenta . 3rd trimester. TECHNIQUE: Pelvic obstetrical transabdominal sonogram was performed by a technologist. There are mu ltiple grayscale and Doppler images available for interpretation. There are no earlier studies of th is gestation for comparison. FINDINGS: There is a single fetus identified in vertex presentation with a heart rate of 136 beats pe r minute. The placenta is located in the anterior position. There is no sonographic evidence of retr oplacental hemorrhage identified. There is subjectively expected amount of amniotic fluid. IMPRESSION: 1. Single fetus in vertex presentation with heart rate 136 beats per minute. 2. Unremarkable placenta. Reviewed, dictated and finalized at location A. TH COACH
--- NOTE | 2021-08-24 09:38 | OBADM ---
This patient, Romana Pinzon, admitted to the OB room [facility] for observation. Patient/family oriented to hospital policies and general routines including ID bracelet, bed and alarms, visiting hours, pain management, procedures, bathroom and other care routines, personal items, smoking policy, room service/diet, and visiting hours. Patient/Family are encouraged to report perceived risks to care and to ask questions if they do not understand what they are told or what they should do.
[2021-08-24 09:59] VITALS: BP 140/62; PULSE 96
[2021-08-24 10:00] VITALS: BMI 22.8
[2021-08-24 10:05] VITALS: TEMP 37.3
[2021-08-24 10:16] VITALS: BP 131/72; PULSE 92
[2021-08-24 11:23] VITALS: TEMP 36.8
[2021-08-24 11:38] LABS: Basophils Percent Auto 0.2 % (0.2-1.2); Eosinophils Absolute Auto 0.1 K/mm3 (0-0.3); Eosinophils Percent Auto 1.2 % (0-4.4); Hematocrit 29.9 % (37.0-47.0); Hemoglobin 9.7 g/dL (12.0-15.0); Immature Granulocyte Absolute 0.09 K/mm3 (0.00-0.031); Immature Granulocyte Percent A 1.1 % (0-0.5); Lymphocytes Percent Auto 15.3 % (18.3-44.2); Mean Corpuscular HGB Conc 32.4 g/dl (32-36); Mean Corpuscular Hemoglobin 31.4 pg (26-34); Mean Corpuscular Volume 96.8 fl (80-100); Mean Platelet Volume 10.8 fl (7.4-10.4); Monocytes Absolute Auto 0.7 K/mm3 (0.1-0.6); Monocytes Percent Auto 8.2 % (2.6-8.5); Neutrophils Absolute Auto 6.3 K/mm3 (1.3-6.7); Platelet Count Result 199 k/mm3 (150-375); Red Blood Count 3.09 M/mm3 (4.2-5.4); Red Cell Distribution Width 13.3 % (11.5-14.5); White Blood Count 8.5 K/mm3 (4.5-10.0)
--- NOTE | 2021-08-24 12:02 | PM.OBTRLD ---
OB - Triage/Final Diagnosis Visit Information Date of evaluation: 08/24/21 Reason for evaluation: other (abdominal pain) Comments/Additional reasons for admission: I have assessed the risk for this patient, Romana Pinzon, and determined that she would benefit from observation care. Evaluation Laboratory results: Laboratory Tests 08/24/21 11:20 WBC 8.5 RBC 3.09 L Hgb 9.7 L Hct 29.9 L MCV 96.8 MCH 31.4 MCHC 32.4 RDW 13.3 Plt Count 199 MPV 10.8 H Immature Gran % (Auto) 1.1 H Neut % (Auto) 74.0 H Lymph % (Auto) 15.[address] [place] % (Auto) 8.2 Eos % (Auto) 1.2 Baso % (Auto) 0.2 Lymph # (Auto) 1.30 [place] # (Auto) 0.7 H Eos # (Auto) 0.1 Baso # (Auto) 0.0 Abs Immat Gran (auto) 0.09 H Absolute Neuts (auto) 6.3 Absolute Nucleated RBC 0.0 Nucleated RBC % 0.0 Vital signs: Vital Signs - 24 hr 08/24/21 09:59 08/24/21 10:16 Pulse Rate 96 92 Blood Pressure 140/62 131/72
[2021-08-24 12:04] LABS: Fetal Fibronectin Negative
[2021-08-24] MEDS: TERBUTALINE SULFATE 1 MG/ML VIAL 0.25 MG SUB-Q (12:08)
[2021-08-24] MEDS: SIMETHICONE 80 MG TAB.CHEW PO (12:09)
[2021-08-24 12:18] LABS: Add Urine Microscopic? YES; Appearance Urine Clear (Clear); Bilirubin Urine Negative (Negative); Blood Urine Negative (Negative); Color Urine Yellow (Yellow); Glucose Urine UA Negative (Negative); Ketones Urine Negative (Negative); Leukocyte Esterase Ur Negative LEU/UL (NEGATIVE); Mucus Urine Rare /lpf; Nitrate Urine Negative (Negative); Protein Urine Negative (Negative); Specific Grav Ur 1.015 (1.001-1.035); Squamous Epithelial Cell Urine Occasional /hpf (Few); Urobilinogen Urine Negative mg/dL (<2.0); WBC Urine 0-3 /hpf (0-3)
[2021-08-24] MEDS: LACTATED RINGERS 1,000 ML 999 ML IV CONT (12:46)
[2021-08-24] MEDS: MORPHINE SULFATE (*CRX) 2 MG/ML INJ 1 MG IV PUSH (12:47)
[2021-08-24] MEDS: PROMETHAZINE HCL 25 MG/ML AMPUL 12.5 MG IV PUSH (12:51)
[2021-08-24 15:19] VITALS: BP 109/60; PULSE 84
[2021-08-24 15:20] VITALS: TEMP 37.4
[2021-08-24] MEDS: FAMOTIDINE 20 MG/2 ML VIAL IV PUSH (15:41)
== END 2021-08-24 15:50 | disposition home or self-care (01) ==
PROVIDERS: Admitting Provider Obstetrics & Gynecology; PCP Family Medicine; Visit Provider Obstetrics & Gynecology
DX: O26.893 Other specified pregnancy related conditions, third trimester (principal); R10.9 Unspecified abdominal pain; Z3A.31 31 weeks gestation of pregnancy
CPT/HCPCS: 36415; 76705; 76775; 76815; 81001; 82731; 85025; 87086; 96361; 96372; 96374; 96375; A9270; G0378; G0379; J2270; J2550; J3105; J7120

== ENCOUNTER 2021-09-15 11:30 | Observation (INO) | payer OTHER, MEDICAID, SELFPAY ==
[2021-09-15 11:30] VITALS: BMI 24.1
[2021-09-15 12:00] VITALS: BP 99/59; PULSE 89
[2021-09-15 12:02] LABS: Appearance Urine Clear (Clear); Bilirubin Urine Negative (Negative); Blood Urine Negative (Negative); Color Urine Yellow (Yellow); Glucose Urine UA Negative (Negative); Ketones Urine Negative (Negative); Leukocyte Esterase Ur Trace LEU/UL (NEGATIVE); Nitrate Urine Negative (Negative); Protein Urine Negative (Negative); Urobilinogen Urine 0.2 mg/dL (<2.0)
[2021-09-15 12:06] LABS: Bacteria Urine 1+ /hpf; Mucus Urine Rare /lpf; Squamous Epithelial Cell Urine Moderate /hpf (Few)
[2021-09-15 12:15] LABS: Add Urine Microscopic? YES
[2021-09-15] MEDS: LACTATED RINGERS 1,000 ML 999 ML IV CONT (12:40)
[2021-09-15] MEDS: FAMOTIDINE 20 MG/2 ML VIAL IV PUSH (12:41)
[2021-09-15] MEDS: PROMETHAZINE HCL 25 MG/ML AMPUL 12.5 MG IV PUSH (12:41)
--- NOTE | 2021-09-15 13:54 | PC.NURSE ---
1220- Rc Moore notified of patient status. Orders obtained for IV access, LR bolus, pepcid 20mg IV and phenergan 12.5mg IV.
--- NOTE | 2021-09-16 07:45 | P.PNOB_ITS ---
OB - Triage/Final Diagnosis Visit Information Date of evaluation: 09/15/21 Reason for evaluation: other (nausea/dehydration) Comments/Additional reasons for admission: I have assessed the risk for this patient, Romana Pinzon, and determined that she would benefit from observation care. Evaluation Laboratory results: Laboratory Tests 09/15/21 11:49 Urine Color Yellow Urine Appearance Clear Urine pH 7.0 Ur Specific [place] 1.020 Urine Protein Negative Urine Glucose (UA) Negative Urine Ketones Negative Ur Blood (Man) Negative Urine Nitrate Negative Urine Bilirubin Negative Urine Urobilinogen 0.2 Ur Leukocyte Esterase Trace H Urine RBC 3-5 H Urine WBC 7-9 H Ur Squamous Epith Cells Moderate H Urine Bacteria 1+ H Urine Mucus Rare Vital signs: Vital Signs - 24 hr 09/15/21 12:00 Pulse Rate 89 Blood Pressure 99/59 L
== END 2021-09-15 14:18 | disposition home or self-care (01) ==
PROVIDERS: Admitting Provider Obstetrics & Gynecology; PCP Family Medicine; Visit Provider Obstetrics & Gynecology
DX: O99.283 Endocrine, nutritional and metabolic diseases complicating pregnancy, third trimester (principal); E86.0 Dehydration; R11.0 Nausea; Z3A.35 35 weeks gestation of pregnancy
CPT/HCPCS: 81001; 87086; 96374; 96375; G0378; G0379; J2550; J7120

== ENCOUNTER 2021-10-14 09:04 | Observation (INO) | payer OTHER, MEDICAID, SELFPAY ==
[2021-10-14 09:45] VITALS: BP 101/58; PULSE 91
[2021-10-14] MEDS: ONDANSETRON HCL ODT 4 MG TABLET PO (09:58)
[2021-10-14] MEDS: ACETAMINOPHEN 500 MG TABLET 1000 MG PO (09:59)
[2021-10-14] MEDS: CYCLOBENZAPRINE HCL 10 MG TABLET PO (09:59)
--- NOTE | 2021-10-14 11:43 | OBADM ---
This patient, Romana Pinzon, admitted to the OB room Labor/Delivery/Recovery 107 for observation. Patient/family oriented to hospital policies and general routines including ID bracelet, bed and alarms, visiting hours, pain management, procedures, bathroom and other care routines, personal items, smoking policy, room service/diet, and visiting hours. Patient/Family are encouraged to report perceived risks to care and to ask questions if they do not understand what they are told or what they should do.
--- NOTE | 2021-10-14 11:51 | PC.NURSE ---
0938- [facility] fingertip. Orders to give Zofran ODT, Tyelnol 1 gm, and Flexeril 10 mg PO now. Discharge to home if feeling better
--- NOTE | 2021-10-14 13:11 | PC.NURSE ---
0908- EFM applied. 1002- EFM removed, toco continued. 145, reactive,
--- NOTE | 2021-10-18 12:10 | PM.OBTRLD ---
OB - Triage/Final Diagnosis Visit Information Comments/Additional reasons for admission: I have assessed the risk for this patient, Romana Pinzon, and determined that she would benefit from observation care.
--- NOTE | 2021-10-20 11:32 | PM.OBTRLD ---
OB - Triage/Final Diagnosis Visit Information Reason for evaluation: threatened labor Comments/Additional reasons for admission: I have assessed the risk for this patient, Romana Pinzon, and determined that she would benefit from observation care.
== END 2021-10-14 11:52 | disposition home or self-care (01) ==
PROVIDERS: Admitting Provider Obstetrics & Gynecology; PCP Family Medicine; Visit Provider Obstetrics & Gynecology
DX: O26.899 Other specified pregnancy related conditions, unspecified trimester (principal); O21.0 Mild hyperemesis gravidarum; R10.9 Unspecified abdominal pain; Z3A.00 Weeks of gestation of pregnancy not specified
CPT/HCPCS: A9270; G0378; G0379

== ENCOUNTER 2021-10-19 05:01 | Inpatient (IN) | payer OTHER, MEDICAID, SELFPAY ==
[2021-10-19] VITALS (18 sets, daily range): BP systolic 88–132; BP diastolic 46–87; PULSE 63–91; TEMP 36.3–37.1; BMI 26.4
--- NOTE | 2021-10-19 05:01 | LDADM ---
This patient, Romana Pinzon, was admitted to Labor/Delivery/Recovery 105 on 10/19/21 at 05:01. Plans for labor, pain management and were discussed with patient. Patient/family oriented to hospital policies and general routines including ID bracelet, bed and alarms, visiting hours, pain management, procedures, bathroom and other care routines, personal items, smoking policy, room service/diet and guest tray routines, infant security routines, and visiting hours. Patient/Family are encouraged to report perceived risks to care and to ask questions if they do not understand what they are told or what they should do. See OBIX for further documentation.
--- OUTSIDE RECORDS SUMMARY | 2021-10-19 05:06 | XMS_ITS ---
:1995 Author Care Team Providers Name Role Phone Tom Medel Primary Care Provider Unavailable Allergies Code Code System Name Reaction Severity Status Onset NKDA ? Medications Name Status Start Date Stop Date ? ? ampicillin 500 mg capsule Completed ? 2020 TAKE 1 CAPSULE BY MOUTH EVERY 6 HOURS dicyclomine 20 mg tablet Completed ? 021 TAKE 1 TABLET BY MOUTH FOUR TIMES DAILY famotidine 40 mg tablet Active ? Not avai lable TAKE 1 TABLET BY MOUTH EVERY DAY NEEDED ID NOW COVID-19 Test Kit Active ? Not fallon ilable TEST DIRECTED TODAY medroxyprogesterone 10 mg tablet Completed ? 02/11/2021 TAKE 1 TABLET BY MOUTH DAILY FOR 10 DAYS omeprazole 20 mg capsule,delayed release Completed ? 05/19/2021 Take 1 capsule every day by oral route. omeprazole 40 mg capsule,delayed release Completed ? 05/19/2021 TAKE 1 CAPSULE BY MOUTH EVERY DAY Vitamin Active ? Not available Problems Name Status Onset Date Source ? Gastroesophageal Reflux Disease without Active 02/12/20 21 ? Esophagitis Kidney Stone Active 02/11/2021 ? Endometriosis (Clinical) Active 02/11/2021 ? 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 Procedures Date Name Performed by ? ? Exploration of Pelvis by Laparotomy Info rmation not available Results Lab Results
[2021-10-19 06:16] LABS: Basophils Percent Auto 0.5 % (0.2-1.2); Eosinophils Absolute Auto 0.1 K/mm3 (0-0.3); Eosinophils Percent Auto 2.1 % (0-4.4); Hematocrit 31.9 % (37.0-47.0); Hemoglobin 10.6 g/dL (12.0-15.0); Immature Granulocyte Percent A 1.6 % (0-0.5); Lymphocytes Absolute Auto 1.55 K/mm3 (0.9-3.2); Lymphocytes Percent Auto 24.8 % (18.3-44.2); Mean Corpuscular HGB Conc 33.2 g/dl (32-36); Mean Corpuscular Hemoglobin 31.4 pg (26-34); Mean Corpuscular Volume 94.4 fl (80-100); Mean Platelet Volume 11.4 fl (7.4-10.4); Monocytes Absolute Auto 0.6 K/mm3 (0.1-0.6); Monocytes Percent Auto 9.9 % (2.6-8.5); Neutrophils Absolute Auto 3.8 K/mm3 (1.3-6.7); Neutrophils Percent Auto 61.1 % (45.5-73.1); Platelet Count Result 182 k/mm3 (150-375); Red Blood Count 3.38 M/mm3 (4.2-5.4); Red Cell Distribution Width 13.3 % (11.5-14.5); White Blood Count 6.3 K/mm3 (4.5-10.0)
[2021-10-19] MEDS: LACTATED RINGERS 1,000 ML 125 ML IV CONT ×2 (06:17→22:52)
[2021-10-19] MEDS: OXYTOCIN 30 UNITS/NS 500 ML 30 UNITS/500 ML BAG 6 UNITS IV CONT (06:18)
[2021-10-19] MEDS: AMPICILLIN 2 GM/NS 100 ML 2 GM/100 ML BAG IVPB (06:18)
--- NOTE | 2021-10-19 06:23 | WPDANESEPP ---
Anes - Eval Pre Procedure Procedure: Labor epidural Date/Time: 10/19/21 06:23 Surgeon: Sonia Preop Diagnosis: pain during labor Pre Op Diagnosis: IOL Patient Data Age: 26 Gender: F Height: 1.7 m Weight: 76.5 kg Allergies Allergy/AdvReac Type Severity Reaction Status Date / Time No Known Allergies Allergy Unknown Verified 09/25/21 14:30 Home Medications Medication Instructions Recorded Confirmed Type docusate sodium 50 mg PO DAILY 09/15/21 09/15/21 History prenat.vits,kaley,etz-[id number] 1 tablet PO DAILY 09/15/21 09/15/21 History Azo Cranberry 250 mg PO BID 09/25/21 09/25/21 History esomeprazole magnesium [Nexium 20 mg PO DAILY 09/25/21 09/25/21 History 24HR] ferrous sulfate 324 mg PO DAILY 09/25/21 09/25/21 History Laboratory Tests 10/19/21 10/19/21 05:50 05:50 WBC 6.3 K/mm3 K/mm3 (4.5-10.0) RBC 3.38 M/mm3 L M/mm3 (4.2-5.4) Hgb 10.6 g/dL L g/dL (12.0-15.0) Hct 31.9 % L % (37.0-47.0) MCV 94.4 fl fl (80-100) MCH 31.4 pg pg (26-34) MCHC 33.2 g/dl g/dl (32-36) RDW 13.3 % % (11.5-14.5) Plt Count 182 k/mm3 k/mm3 (150-375) MPV 11.4 fl H fl (7.4-10.4) Immature Gran % (Auto) 1.6 % H % (0-0.5) Neut % (Auto) 61.1 % % (45.5-73.1) Lymph % (Auto) 24.8 % % (18.3-44.2) [place] % (Auto) 9.9 % H % (2.6-8.5) Eos % (Auto) 2.1 % % (0-4.4) Baso % (Auto) 0.5 % % (0.2-1.2) Lymph # (Auto) 1.55 K/mm3 K/mm3 (0.9-3.2) [place] # (Auto) 0.6 K/mm3 K/mm3 (0.1-0.6) Eos # (Auto) 0.1 K/mm3 K/mm3 (0-0.3) Baso # (Auto) 0.0 K/mm3 K/mm3 (0.0-0.1) Abs Immat Gran (auto) 0.10 K/mm3 H K/mm3 (0.00-0.031) Absolute Neuts (auto) 3.8 K/mm3 K/mm3 (1.3-6.7) Absolute Nucleated RBC 0.0 K/mm3 K/mm3 (0.0-0.012) Nucleated RBC % 0.0 % % (0.0-0.2) RPR Pending Patient hx anesthesia problems: none Family hx anesthesia problems: none Results Review: All pre-operative results and documents have been reviewed as part of the pre-operative evaluation. [facility] Past Medical History Medical History Sanket-Danlos disease Kidney stones Surgical History Surgical History S/P laparoscopic procedure Endometriosis 2017 Uterine polyp Status post polypectomy 2017 Family History Family History (Updated 09/25/21 @ 14:32 by Suzanne Gandhi RN) Grandparent Diabetes mellitus Mother Congestive heart failure Father Healthy adult male Social History Social History Smoking status: Never smoker Second hand tobacco smoke exposure: No Alcohol intake: current Drinks per week: 12 Alcohol use details: She drinks 2 or 3 times a week. She will drink 3-5 drinks on these occasions. Substance use: never Substance use type: marijuana Other substance usage details: She smokes marijuana daily. Additional living arrangements comments: She lives with her boyfriend. Gender identity (if verbalized by the patient): Female Spiritual care concerns: No Exam Day of Procedure 10/19/21 06:23
[2021-10-19] MEDS: ONDANSETRON INJ 4 MG/2 ML VIAL IV PUSH (06:29)
[2021-10-19 07:32] LABS: Rapid Plasma Reagin Non-Reactive (NonReactive)
[2021-10-19] MEDS: fentaNYL CITRATE INJ (*CRX) 100 MCG/2 ML VIAL 50 MCG IV PUSH ×5 (07:35→17:23)
--- NOTE | 2021-10-19 07:42 | PM.IMHP ---
H&P: HPI History of Present Illness Date/Time: 10/19/21 07:42 26-year-old para 0 at term for induction of labor spots for group B strep. Risks benefits reviewed Chief Complaint: induction of labor at term Review of Systems Review of Systems: All systems reviewed & are unremarkable except as noted in HPI and below PMFSH Past Medical History Medical History Sanket-Danlos disease Kidney stones Surgical History Surgical History S/P laparoscopic procedure Endometriosis 2017 Uterine polyp Status post polypectomy 2017 Family History Family History Grandparent Diabetes mellitus Mother Congestive heart failure Father Healthy adult male Social History Social History Smoking status: Never smoker Second hand tobacco smoke exposure: No Alcohol intake: current Drinks per week: 12 Alcohol use details: She drinks 2 or 3 times a week. She will drink 3-5 drinks on these occasions. Substance use: never Substance use type: marijuana Other substance usage details: She smokes marijuana daily. Additional living arrangements comments: She lives with her boyfriend. Gender identity (if verbalized by the patient): Female Spiritual care concerns: No Meds Home Medications and Allergies Home Medications Medication Instructions Recorded Confirmed Type docusate sodium 50 mg PO DAILY 09/15/21 10/19/21 History prenat.vits,kaley,xmo-okuz-erolj 1 tablet PO DAILY 09/15/21 10/19/21 History Azo Cranberry 250 mg PO BID 09/25/21 09/25/21 History esomeprazole magnesium [Nexium 20 mg PO DAILY 09/25/21 09/25/21 History 24HR] ferrous sulfate 324 mg PO DAILY 09/25/21 09/25/21 History Allergies Allergy/AdvReac Type Severity Reaction Status Date / Time No Known Allergies Allergy Unknown Verified 09/25/21 14:30 Vital Signs Vital Signs - 24 hr 10/19/21 06:30 10/19/21 07:00 10/19/21 07:30 Pulse Rate 84 67 80 Blood Pressure 122/72 113/61 132/70 Exam Const: General: no acute distress Eyes: General: appearance normal, both eyes and all related structures Neck: Neck: supple and no JVD Thyroid: thyroid normal Resp: Effort & Inspection: normal respiratory effort Auscultation: clear to auscultation bilaterally Cardio: Rate: regular rate Rhythm: regular rhythm GI: Inspection: non-distended GI Palp: Yes Soft to palpation, No Tenderness to palpation present (GI) and No Guarding due to palpation present (GI) Auscultation: normal bowel sounds : External Female Exam: normal external appearance Speculum Exam - Vagina: normal appearance of the vagina Speculum Exam - Cervix: normal appearance of the cervix ( cervix 1.2. heart tones reassuring. AROM clear) Skin: General skin exam: no rashes or lesions noted Extrem: General: normal to inspection and no edema Psych: Mental Status: mental status grossly normal Affect: normal affect H&P: Results Labs Labs: Short CBC 10/19/21 Range/Units 05:50 WBC 6.3 (4.5-10.0) K/mm3 Hgb 10.6 L (12.0-15.0) g/dL Hct 31.9 L (37.0-47.0) % Plt Count 182 (150-375) k/mm3 Assessment and Plan Additional Plan impression term positive group B strep for induction of labor Plan: Medical for labor. Group B strep prophylaxis. She has an epidural candidate
[2021-10-19] MEDS: AMPICILLIN 1 GM/NS 50 ML 1 GM/50 ML BAG IVPB ×4 (10:19→22:52)
[2021-10-19] MEDS: DINOPROSTONE 10 MG VAG INSERT VAGINAL (10:20)
[2021-10-20] VITALS (147 sets, daily range): BP systolic 90–141; BP diastolic 44–123; PULSE 29–211; RESP 16–18; TEMP 36.4–37.2; O2SAT 81–100
[2021-10-20] MEDS: fentaNYL CITRATE INJ (*CRX) 100 MCG/2 ML VIAL 50 MCG IV PUSH (00:38)
[2021-10-20] MEDS: AMPICILLIN 1 GM/NS 50 ML 1 GM/50 ML BAG IVPB ×3 (02:17→10:36)
[2021-10-20] MEDS: fentaNYL CITRATE INJ (*CRX) 100 MCG/2 ML VIAL IV PUSH (04:20)
[2021-10-20] MEDS: LACTATED RINGERS 1,000 ML 125 ML IV CONT ×2 (06:24→08:42)
--- NOTE | 2021-10-20 06:43 | PM.OBPNLAB ---
Pain Control Date/time seen: 10/20/21 06:43 Pain control: tolerating well Pelvic Exam Dilation (cm): 2 Effacement (%): 75 station: -2 Amniotic membrane status: Ruptured Comments: clear Contractions Monitor mode: External
[2021-10-20] MEDS: ONDANSETRON INJ 4 MG/2 ML VIAL IV PUSH (06:57)
--- NOTE | 2021-10-20 11:27 | PM.OBPNLAB ---
Pain Control Date/time seen: 10/20/21 11:27 Pain control: tolerating well Comments: iupc in Pelvic Exam Dilation (cm): 9 Effacement (%): 100 station: -1 Amniotic membrane status: Ruptured Contractions Monitor mode: External
--- NOTE | 2021-10-20 13:53 | P.PCNOB_ITS ---
OB - Delivery Note Procedure Delivery date: 10/20/21 Procedure: mil Induction method: Per Cervidil Protocol Delivery augmentation: Rupture of Membranes and Pitocin Delivery monitor: External FHT and Internal Uterine Route of delivery: Episiotomy description: None Laceration Description: None Specimen: No Quantitative Blood Loss (ml): 59 Disposition: Floor [place] Baby Date of : 10/20/21 Time of : 13:44 Weeks of gestation at delivery: 40 Infant gender: Male presentation: vertex position: Right Occiput Anterior Placenta delivery description: Spontaneous Narrative: amp x 8
[2021-10-20] MEDS: OXYTOCIN 30 UNITS/NS 500 ML 30 UNITS/500 ML BAG 125 UNITS IV CONT (14:13)
--- NOTE | 2021-10-20 16:55 | PC.NURSE ---
Patient transferred to post room #278 via [id number]. Support person present. Oriented to unit, room, information board, rooming in, admission packet and security measures. Patient verbalizes understanding.
[2021-10-20] MEDS: ACETAMINOPHEN 325 MG TABLET 650 MG PO (17:27)
[2021-10-20] MEDS: WITCH HAZEL 40 PADS 1 PAD TOPICAL (18:15)
[2021-10-20] MEDS: DOCUSATE SODIUM 100 MG CAPSULE PO (19:20)
[2021-10-20] MEDS: IBUPROFEN 600 MG TABLET PO (19:20)
[2021-10-20] MEDS: LANOLIN (LANSINOH) 7.5 GM CREAM 1 APPLIC TOPICAL (19:21)
--- NOTE | 2021-10-20 21:05 | PC.NURSE ---
Assisted with attempt. showing no feeding cues at this time. Practiced positioning in football on right and cross cradle on left. Mother noted to have a skin tag to her left nipple and bilateral nipples are everted however, shallow with wedgeable tissue. Mother was able to hand express a teaspoon of colostrum and spoon fed to .
[2021-10-21 00:05] VITALS: BP 100/63; PULSE 68; RESP 18; TEMP 36.7; O2SAT 97
[2021-10-21] MEDS: IBUPROFEN 600 MG TABLET PO ×3 (01:25→17:12)
[2021-10-21 04:15] VITALS: BP 119/82; PULSE 72; RESP 16; TEMP 36.8; O2SAT 99
[2021-10-21 05:21] LABS: Hematocrit 30.7 % (37.0-47.0); Hemoglobin 9.8 g/dL (12.0-15.0)
[2021-10-21 08:30] VITALS: BP 114/77; PULSE 72; RESP 18; TEMP 36.5; O2SAT 98
[2021-10-21] MEDS: MULTIVIT/MIN/PREN/FOL AC/IRON TABLET 1 TAB PO (11:25)
[2021-10-21] MEDS: DOCUSATE SODIUM 100 MG CAPSULE PO ×2 (11:25→17:12)
[2021-10-21] MEDS: POLYSACCHARIDE IRON COMPLEX 150 MG CAPSULE PO ×2 (11:25→17:12)
[2021-10-21 11:40] VITALS: BP 127/73; PULSE 80; RESP 16; TEMP 36.8; O2SAT 98
--- NOTE | 2021-10-21 13:35 | PC.NURSE ---
[phone] Introductions were made, then consulted with patient to assess needs related to . Mother led the conversation with her experience feeding her so far. Mother works well with her with encouragement and education. Encouraged understanding of the benefits of skin to skin (unwrapping and placing vertically on her chest), responsive feeding and how to watch for early feeding signs, frequency of feeding on demand about every 8-12 times in 24 hours (every 2-3 hours), milk production, duration of feeding, signs of adequate intake/output and how to record on the feeding sheet. Reminding mother of comfort measures of healing with a warm and wet washcloth to rinse breast, then leave open to air-dry as needed. Reviewed good handwashing when or touching the breast/nipples to prevent infection. Resources used to facilitate learning were used with the mom and baby guide. Mother voiced understanding of responsive feedings, stimulating with skin to skin, hand expressed colostrum, touch, talking to infant to encourage if it has been 2 -3 hours since the start of the last , to call if does not latch or there is discomfort with . Reported to the primary RN.
--- NOTE | 2021-10-21 14:27 | WPDANLDPN2 ---
Anes-Prog Note L&D Date/Time: 10/21/21 14:27 Comfortable throughout: labor and delivery Neuraxial method: epidural Epidural/Spinal procedure site: clean & non-tender Neuro status: Neuro function grossly intact. Cardiovascular status: normal Respiratory status: normal Airway patency: baseline Mental status: baseline Post-Op hydration status: normal Vital Signs: Last Vital Signs Temp 36.8 C 10/21/21 11:40 Pulse 80 10/21/21 11:40 Resp 16 10/21/21 11:40 BP 127/73 10/21/21 11:40 Pulse Ox 98 10/21/21 11:40 Pain score (VAS): 0 I/O: Intake & Output 10/20/21 10/21/21 10/21/21 23:59 07:59 15:59 Intake Total 1200 Balance 1200 Post-procedural complaints: none Patient feedback: Patient satisfied with anesthetic care.
[2021-10-21 18:50] VITALS: BP 130/90; PULSE 76; RESP 16; TEMP 37; O2SAT 100
[2021-10-21] MEDS: ACETAMINOPHEN 325 MG TABLET 650 MG PO (19:00)
[2021-10-21] MEDS: DIBUCAINE 1% OINTMENT 30 GM TUBE 1 APPLIC TOPICAL (19:14)
[2021-10-21] MEDS: WITCH HAZEL 40 PADS 1 PAD TOPICAL (19:14)
[2021-10-22] MEDS: ACETAMINOPHEN 325 MG TABLET 650 MG PO (04:23)
[2021-10-22] MEDS: IBUPROFEN 600 MG TABLET PO (04:27)
[2021-10-22] MEDS: POLYSACCHARIDE IRON COMPLEX 150 MG CAPSULE PO (08:04)
[2021-10-22] MEDS: DOCUSATE SODIUM 100 MG CAPSULE PO (08:05)
[2021-10-22] MEDS: MULTIVIT/MIN/PREN/FOL AC/IRON TABLET 1 TAB PO (08:05)
--- NOTE | 2021-10-22 09:04 | PM.OBPNVD ---
OB - PN: Subj Subjective Date/time seen: 10/22/21 09:04 Narrative: Pain OK. Would like to go home. OB - PN: Obj Data Labs CBC & Chem 7: 10/21/21 04:19 OB - PN A/P Plan Comments: A: PPD#2, doing well. P: Home to f/u 6 weeks. Exam Psych: Other: AVSS ABD soft, nontender, fundus firm EXT nontender
[2021-10-22 09:22] VITALS: BP 121/83; PULSE 77; RESP 14; TEMP 36.4; O2SAT 100
--- NOTE | 2021-10-22 17:18 | PC.NURSE ---
0900 Patient viewed the discharge video Mother & Baby Care, The First Two Weeks . Patient was given the opportunity and encouraged to ask questions. Patient verbalized understanding of information shared and has been given the mother/baby guide for home reference.
[2021-10-23 10:02] VITALS: BP 119/81; PULSE 76; RESP 16; TEMP 36.7; O2SAT 98
--- NOTE | 2021-10-25 07:35 | PM.OBDSVD ---
DS: Admitting Diagnosis Discharge Date 10/22/21 Admitting Diagnosis IUP at term GBS colonization DS: Discharge Diagnosis Discharge Diagnosis (1) (normal spontaneous vaginal delivery): Code(s): O80 - Encounter for full-term uncomplicated delivery Status: Acute (2) GBS (group B Streptococcus carrier), +RV culture, currently : Code(s): O99.820 - Streptococcus B carrier state complicating Status: Acute OB - DS: Summary OB Procedures : None OB Procedures Intrapartum: Spontaneous Vag Delivery OB Procedures: : None Discharge Plan Discharge Attending physician on discharge: El Cohen Consulting providers: Stephanie Rizzo ; Ayah Pelaez Discharging Clinician: Rodney Atkins Patient Disposition: Home, Self-Care Activity: pelvic rest Diet: regular Discharge Instructions: Education: Mom and Baby Guide Given to: Mother Follow-Up: Call your delivering provider's office for an appointment to be seen in: 6 Weeks Mom and baby should come to the [facility] for the follow-up appointment. Appointment Date/Time: Saturday, October 23, 2021 at 10:00 am What to expect at your follow-up visit: Physical Assessment Call [phone] if you are unable to keep your appointment time. BREAST CARE: * Wear a snug supportive bra. * For engorgement discomfort: Breast Feeding: * Apply warm moist washcloths * Express milk as needed to relieve engorgement * Wear loose clothing Bottle Feeding: * May apply ice packs * For sore nipples: * Identify correct latch-on * Apply warm moist washcloths before and after nursing * Air dry nipples after nursing * May apply Lansinoh cream to nipples PERINEAL CARE: * Until bleeding stops, use your stacia bottle after urinating * Change your pad frequently throughout the day * You may take sitz baths several times a day (fill your bathtub with warm water and soak for 20 minutes.) Do NOT bathe in the water * No tub baths until seen by your physician - You may shower ACTIVITY: * Rest as much as possible. * Do not exercise or lift anything heavier than your baby (such as laundry or other children.) * Avoid stairs or driving as much as possible. * Do not put anything into the vagina. No douching, tampons, or sexual activity until seen by physician. NOTIFY PHYSICIAN IF YOU HAVE ANY QUESTIONS OR IF ANY OF THE FOLLOWING SYMPTOMS OCCUR: * If your episiotomy or incision becomes red, swollen, or more painful than what you have experienced in the hospital. * If your vaginal bleeding becomes foul smelling. * If your vaginal bleeding becomes more heavy than a period or if your bleeding changes from pink to bright red. However, you may pass an occasional walnut-sized clot once or twice for the first week . * If you experience a sharp, shooting pain in you calves. * If you discover a hard, reddened area on your breast or if you experience flu-like symptoms. DIET: * Eat regular, well-balanced meals. * Drink plenty of fluids daily. If , drink to thirst. Per Dr. Atkins, Call or return if temperature above 100.4? F, increased abdominal pain, increased vaginal bleeding or any new problems. Patient Instructions: Antibiotic Form Follow-up/Referrals: El Cohen MD [Physician] - 6 Weeks Discharge Medications: New ibuprofen 600 mg tablet 600 mg PO Q6H PRN (Reason: cramps) Qty: 30 RF: 0 ferrous sulfate 325 mg (65 mg iron) tablet 325 mg PO DAILY Qty: 30 RF: 0 Continued esomeprazole magnesium [Nexium 24HR] 20 mg Capsule,Delayed Release(Dr/Ec) 20 mg PO DAILY RF: 0 Azo Cranberry 250 mg Tablet,Chewable 250 mg PO BID RF: 0 docusate sodium 50 mg Capsule 50 mg PO DAILY RF: 0 prenat.vits,kaley,rns-mgiy-jnokk Tablet 1 tablet PO DAILY
== END 2021-10-22 11:48 | disposition home or self-care (01) | DRG 806 ==
LOC: ANHOB2 10-22 09:40 → ANHLDR 10-22 14:25 → ANHOB2 10-22 14:25
PROVIDERS: Admitting Provider Obstetrics & Gynecology; PCP Family Medicine; Visit Provider Obstetrics & Gynecology
DX: O99.824 Streptococcus B carrier state complicating childbirth (principal); Q79.60 Ehlers-Danlos syndrome, unspecified; Z37.0 Single live birth; Z3A.40 40 weeks gestation of pregnancy; O36.8330 Maternal care for abnormalities of the fetal heart rate or rhythm, third trimester, not applicable or unspecified; O99.892 Other specified diseases and conditions complicating childbirth
CPT/HCPCS: 36415; 85014; 85018; 85025; 86592; 86850; 86900; 86901; A9270; J0290; J2405; J2590; J2795; J3010; J7120

== ENCOUNTER 2023-05-30 12:13 | Emergency (ER) | payer SELFPAY ==
[2023-05-30 12:17] VITALS: BP 109/63; PULSE 79; RESP 16; TEMP 36.7; O2SAT 100
== END 2023-05-30 15:15 | disposition left against medical advice (07) ==
LOC: ANHED 14:59
DX: T75.4XXA Electrocution, initial encounter (principal); W86.8XXA Exposure to other electric current, initial encounter
CPT/HCPCS: 99199